=== PATIENT | female | born 1950 | race Caucasian/White ===

== ENCOUNTER 2023-07-12 20:31 | Inpatient (IN) | payer MEDICARE, OTHER ==
[~2023-07-12] VITALS: Ht 162.6 cm; Wt 82.6 kg
[2023-07-12] MEDS ORDERED: IV NS 0.9% 500 ML BAG IV ONE (21:00)
[2023-07-12 21:33] LABS: BASOPHILS % (AUTO) 0.6 % (0.0-2.0); EOSINOPHILS # (AUTO) 0.1 K/uL (0.0-0.7); EOSINOPHILS % (AUTO) 1.4 % (0.0-6.0); HEMATOCRIT 42 % (33-45); HEMOGLOBIN 13.7 g/dL (11.5-14.8); LYMPHOCYTES # (AUTO) 2.3 K/uL (0.8-4.8); LYMPHOCYTES % (AUTO) 27.8 % (20.0-44.0); MEAN CORPUSCULAR HEMOGLOBIN 29 PG (26.0-33.0); MEAN CORPUSCULAR HGB CONC 32 g/dl (31.0-36.0); MEAN CORPUSCULAR VOLUME 89 fL (82-100); MONOCYTES # (AUTO) 0.4 K/uL (0.1-1.30); MONOCYTES % (AUTO) 4.4 % (2.0-12.0); NEUTROPHILS # (AUTO) 5.4 K/uL (1.8-8.9); NEUTROPHILS % (AUTO) 65.8 % (43.0-81.0); PLATELET COUNT (AUTO) 326 K/uL (150-450); RED BLOOD CELL COUNT(AUTO) 4.75 MIL/uL (4.0-5.2); RED CELL DISTRIBUTION WIDTH 14.5 % (11.5-15.0); WHITE BLOOD COUNT (AUTO) 8.2 K/uL (4.3-11.0)
[2023-07-12 21:46] LABS: CALCIUM, SERUM 9.4 mg/dL (8.5-10.1); CREATININE 0.6 mg/dL (0.6-1.3); POTASSIUM 4.2 mmol/L (3.5-5.1)
[2023-07-12 21:52] LABS: ALBUMIN 3.4 g/dL (3.4-5.0); BILIRUBIN,DIRECT 0.1 mg/dL (0.0-0.2); BILIRUBIN,TOTAL 0.4 mg/dL (0.2-1.0); TOTAL PROTEIN, SERUM 7.1 g/dL (6.4-8.2)
[2023-07-12] MEDS ORDERED: MAG HYDROX/AL HYDROX/SIMETH 30 ML UDC PO PRN (22:30)
[2023-07-12] MEDS ORDERED: Z GUARD REMEDY 4 OZ OINT TP PRN (22:30)
[2023-07-12] MEDS ORDERED: IV D5/0.45 NACL 1,000 ML IV PRN (22:30)
[2023-07-12] MEDS ORDERED: ONDANSETRON HCL/PF 4 MG/2 ML VIAL IVP PRN (22:30)
[2023-07-12] MEDS ORDERED: ACETAMINOPHEN 325 MG TABLET PO PRN (22:30)
[2023-07-12] MEDS ORDERED: MAGNESIUM HYDROXIDE 30 ML UDC PO PRN (22:30)
[2023-07-12 23:13] LABS: APPEARANCE,URINE CLEAR (CLEAR); BILIRUBIN,URINE NEGATIVE (NEGATIVE); BLOOD, URINE NEGATIVE Ery/uL (NEGATIVE); COLOR,URINE YELLOW (YELLOW); KETONES,URINE NEGATIVE (NEGATIVE); LEUKOCYTE ESTERASE ,URINE 1+ (NEGATIVE); NITRITE, URINE NEGATIVE (NEGATIVE); PROTEIN,URINE NEGATIVE (NEGATIVE); UGLUCOSE NEGATIVE (NEGATIVE); UROBILINOGEN,URINE 0.2 EU/dL (0.2)
[2023-07-12 23:14] LABS: ADD URINE CULTURE YES; BACTERIA,URINE Rare /HPF (None Seen); RBC,URINE 0-2 /HPF (0-2); SQUAMOUS EPITHELIAL CELL,UR Few /HPF (None Seen)
[2023-07-13] MEDS: ENOXAPARIN SODIUM 40 MG/0.4 ML DISP.SYRIN SQ SCH ×2 (02:28→21:19)
[2023-07-13 06:17] LABS: BASOPHILS % (AUTO) 0.3 % (0.0-2.0); EOSINOPHILS # (AUTO) 0.1 K/uL (0.0-0.7); EOSINOPHILS % (AUTO) 1.6 % (0.0-6.0); HEMATOCRIT 37 % (33-45); HEMOGLOBIN 12.4 g/dL (11.5-14.8); LYMPHOCYTES # (AUTO) 2.3 K/uL (0.8-4.8); LYMPHOCYTES % (AUTO) 31.5 % (20.0-44.0); MEAN CORPUSCULAR HEMOGLOBIN 29 PG (26.0-33.0); MEAN CORPUSCULAR HGB CONC 33 g/dl (31.0-36.0); MEAN CORPUSCULAR VOLUME 88 fL (82-100); MONOCYTES # (AUTO) 0.4 K/uL (0.1-1.30); MONOCYTES % (AUTO) 4.8 % (2.0-12.0); NEUTROPHILS # (AUTO) 4.5 K/uL (1.8-8.9); NEUTROPHILS % (AUTO) 61.8 % (43.0-81.0); PLATELET COUNT (AUTO) 312 K/uL (150-450); RED BLOOD CELL COUNT(AUTO) 4.25 MIL/uL (4.0-5.2); RED CELL DISTRIBUTION WIDTH 14.5 % (11.5-15.0); WHITE BLOOD COUNT (AUTO) 7.4 K/uL (4.3-11.0)
[2023-07-13 06:33] LABS: CALCIUM, SERUM 8.7 mg/dL (8.5-10.1); CARBON DIOXIDE 26 mmol/L (21-32); CHLORIDE 109 mmol/L (98-107); CREATININE 0.5 mg/dL (0.6-1.3); GLUCOSE 129 mg/dL (74-106); MAGNESIUM 1.8 mg/dL (1.8-2.4); PHOSPHORUS 3.3 mg/dL (2.5-4.9); POTASSIUM 3.4 mmol/L (3.5-5.1); SODIUM SERUM 143 mmol/L (136-145); UREA NITROGEN, BLOOD 11 mg/dL (7-18)
[2023-07-13] MEDS: NITROFURANTOIN/MONOHYDRATE MACROCRYSTALS 100 MG CAPSULE PO SCH ×3 (07:30→21:19)
[2023-07-13 08:32] VITALS: BP 145/75; TEMP 97.7; O2SAT 97
[2023-07-13] MEDS ORDERED: ACET-868 PO (08:37)
[2023-07-13] MEDS ORDERED: NA P133E RC (08:37)
[2023-07-13] MEDS ORDERED: OLAN10TA3 PO (08:37)
[2023-07-13] MEDS ORDERED: MAGN400O6 PO (08:37)
[2023-07-13] MEDS ORDERED: INSU100V7 SQ (08:37)
[2023-07-13] MEDS ORDERED: ATOR10TA PO (08:37)
[2023-07-13] MEDS ORDERED: MAG30ORA PO (08:37)
[2023-07-13] MEDS ORDERED: AMLO-213 PO (08:37)
[2023-07-13] MEDS ORDERED: GLIM2TAB31 PO (08:37)
[2023-07-13] MEDS ORDERED: INSU100V3 SQ (08:37)
[2023-07-13] MEDS ORDERED: BISA10SU11 RC (08:37)
[2023-07-13] MEDS ORDERED: DOCU250C14 PO (08:37)
[2023-07-13] MEDS ORDERED: METF-441 PO (08:37)
[2023-07-13] MEDS: PANTOPRAZOLE 40 MG TABLET.DR PO SCH (09:01)
[2023-07-13] MEDS ORDERED: INSULIN REGULAR, HUMAN 100 UNIT/ML 3 ML VIAL SQ PRN (11:00)
[2023-07-13] MEDS ORDERED: *INSULIN REGULAR(HUMULIN R)HUM 100 UNIT/ML VIAL SQ PRN (11:00)
[2023-07-13] MEDS ORDERED: DEXTROSE 50%-WATER 50 ML DISP.SYRIN IV PRN (11:00)
[2023-07-13] MEDS: BLOOD SUGAR DIAGNOSTIC 1 EACH STRIP VI SCH ×3 (12:00→21:19)
[2023-07-13] MEDS ORDERED: POTASSIUM CHLORIDE 20 MEQ TAB.PRT.SR PO ONE (12:00)
[2023-07-13 16:55] VITALS: BP_SYST 160; BP_SYST 163; BP_DIAS 72; BP_DIAS 84; TEMP 98.2; O2SAT 100; O2SAT 96
[2023-07-13 20:27] VITALS: BP 151/50; TEMP 98.6; O2SAT 98
[2023-07-14] MEDS: BLOOD SUGAR DIAGNOSTIC 1 EACH STRIP VI SCH ×4 (07:23→21:22)
[2023-07-14] MEDS: PANTOPRAZOLE 40 MG TABLET.DR PO SCH (07:42)
[2023-07-14 08:00] VITALS: BP 159/63; TEMP 98.2; O2SAT 96
[2023-07-14] MEDS: NITROFURANTOIN/MONOHYDRATE MACROCRYSTALS 100 MG CAPSULE PO SCH ×2 (08:15→21:11)
[2023-07-14 16:00] VITALS: BP 132/60; TEMP 98.1; O2SAT 98
[2023-07-14 20:00] VITALS: BP 15/58; TEMP 98.4; O2SAT 95
[2023-07-14] MEDS: ENOXAPARIN SODIUM 40 MG/0.4 ML DISP.SYRIN SQ SCH (21:21)
[2023-07-15] MEDS: BLOOD SUGAR DIAGNOSTIC 1 EACH STRIP VI SCH ×4 (06:47→21:49)
[2023-07-15 08:00] VITALS: BP 158/71; TEMP 97.3; O2SAT 95
[2023-07-15] MEDS: NITROFURANTOIN/MONOHYDRATE MACROCRYSTALS 100 MG CAPSULE PO SCH ×2 (08:16→20:50)
[2023-07-15] MEDS: PANTOPRAZOLE 40 MG TABLET.DR PO SCH (08:16)
[2023-07-15 16:51] VITALS: BP 163/65; TEMP 97.5; O2SAT 99
[2023-07-15 19:00] VITALS: BP 139/72; TEMP 98.4; O2SAT 96
[2023-07-15] MEDS: ENOXAPARIN SODIUM 40 MG/0.4 ML DISP.SYRIN SQ SCH (21:37)
[2023-07-16] MEDS: BLOOD SUGAR DIAGNOSTIC 1 EACH STRIP VI SCH ×2 (07:30→11:58)
[2023-07-16 08:00] VITALS: BP 163/68; TEMP 97.6; O2SAT 97
[2023-07-16] MEDS: PANTOPRAZOLE 40 MG TABLET.DR PO SCH (08:14)
[2023-07-16] MEDS: NITROFURANTOIN/MONOHYDRATE MACROCRYSTALS 100 MG CAPSULE PO SCH (08:14)
[2023-07-16] MEDS ORDERED: NITR100C15 PO (08:50)
== END 2023-07-16 14:45 | DRG 690 ==
LOC: ER 20:51 → MED 07-13 00:39
PROVIDERS: ATTEND Internal Medicine
DX: N39.0 Urinary tract infection, site not specified (principal); R63.4 Abnormal weight loss; G20 Parkinson's disease; E11.9 Type 2 diabetes mellitus without complications; E78.5 Hyperlipidemia, unspecified; I10 Essential (primary) hypertension; R62.7 Adult failure to thrive; Z68.31 Body mass index [BMI] 31.0-31.9, adult; Z79.84 Long term (current) use of oral hypoglycemic drugs; Z79.4 Long term (current) use of insulin
CPT/HCPCS: 36415; 71045-TC; 80048-TC; 80076-TC; 81001; 83735-TC; 84100-TC; 85025-TC; 87081-TC; 87086-TC; 97116-TC; G0378; J1650; J1815; J3490; J7030

== ENCOUNTER 2023-12-14 12:46 | Inpatient (IN) | payer MEDICARE, OTHER ==
[~2023-12-14] VITALS: Ht 157.5 cm; Wt 80.7 kg
[~2023-12-14 12:46] MED LIST: ACET-868 PO; AMLO-213 PO; ATOR10TA PO; BISA10SU11 RC; DOCU250C14 PO; GLIM2TAB31 PO; INSU100V3 SQ; INSU100V7 SQ; MAG30ORA PO; MAGN400O6 PO; METF-441 PO; NA P133E RC; NITR100C15 PO; OLAN10TA3 PO
[2023-12-14 14:54] LABS: BASOPHILS # (AUTO) 0.1 K/uL (0.0-0.2); BASOPHILS % (AUTO) 1.1 % (0.0-2.0); EOSINOPHILS # (AUTO) 0.2 K/uL (0.0-0.7); EOSINOPHILS % (AUTO) 1.4 % (0.0-6.0); HEMATOCRIT 41 % (33-45); HEMOGLOBIN 13.5 g/dL (11.5-14.8); LYMPHOCYTES % (AUTO) 18.5 % (20.0-44.0); MEAN CORPUSCULAR HEMOGLOBIN 29 PG (26.0-33.0); MEAN CORPUSCULAR HGB CONC 33 g/dl (31.0-36.0); MEAN CORPUSCULAR VOLUME 89 fL (82-100); MONOCYTES # (AUTO) 0.4 K/uL (0.1-1.30); MONOCYTES % (AUTO) 3.5 % (2.0-12.0); NEUTROPHILS # (AUTO) 8.1 K/uL (1.8-8.9); NEUTROPHILS % (AUTO) 75.5 % (43.0-81.0); PLATELET COUNT (AUTO) 491 K/uL (150-450); RED BLOOD CELL COUNT(AUTO) 4.62 MIL/uL (4.0-5.2); RED CELL DISTRIBUTION WIDTH 13.4 % (11.5-15.0); WHITE BLOOD COUNT (AUTO) 10.8 K/uL (4.3-11.0)
[2023-12-14] MEDS ORDERED: DOCU100T2 PO (15:02)
[2023-12-14] MEDS ORDERED: MAG-5 PO (15:02)
[2023-12-14 15:15] LABS: ALANINE AMINOTRANSFERASE 25 U/L (12-78); ALBUMIN 3.1 g/dL (3.4-5.0); ALKALINE PHOSPHATASE 88 U/L (46-116); ASPARTATE AMINOTRANSFERASE 14 U/L (15-37); BILIRUBIN,DIRECT 0.1 mg/dL (0.0-0.2); BILIRUBIN,TOTAL 0.2 mg/dL (0.2-1.0); CALCIUM, SERUM 9.2 mg/dL (8.5-10.1); CARBON DIOXIDE 26 mmol/L (21-32); CREATININE 0.7 mg/dL (0.6-1.3); GLUCOSE 98 mg/dL (74-106); TOTAL PROTEIN, SERUM 7.3 g/dL (6.4-8.2); UREA NITROGEN, BLOOD 25 mg/dL (7-18)
[2023-12-14 15:23] LABS: CHLORIDE 106 mmol/L (98-107); POTASSIUM 3.9 mmol/L (3.5-5.1); SODIUM SERUM 140 mmol/L (136-145)
[2023-12-14] MEDS ORDERED: MAG HYDROX/AL HYDROX/SIMETH 30 ML UDC PO PRN (17:00)
[2023-12-14] MEDS: METFORMIN 850 MG TABLET PO SCH (17:00)
[2023-12-14] MEDS ORDERED: BISACODYL SUPP (10 MG) 10 MG/SUPP.RECT SUPP.RECT RC PRN (17:00)
[2023-12-14] MEDS: GLIMEPIRIDE 1 MG TABLET PO SCH (17:00)
[2023-12-14] MEDS ORDERED: MAGNESIUM HYDROXIDE 30 ML UDC PO PRN (17:00)
[2023-12-14] MEDS ORDERED: ACETAMINOPHEN 325 MG TABLET PO PRN (17:00)
[2023-12-14] MEDS ORDERED: Z GUARD REMEDY 4 OZ OINT TP PRN (17:00)
[2023-12-14] MEDS ORDERED: NA PHOS,M-B/NA PHOS,DI-BA 1 EA ENEMA RC PRN (17:00)
[2023-12-14] MEDS ORDERED: ONDANSETRON HCL/PF 4 MG/2 ML VIAL IVP PRN (17:00)
[2023-12-14 17:17] LABS: EOSINOPHILS % (MANUAL) 3 % (0-4); LYMPHOCYTES % (MANUAL) 17 % (16-48); MONOCYTES % (MANUAL) 3 % (0-11.0); NEUTROPHILS % (MANUAL) 77 (42-76)
[2023-12-14 17:18] LABS: ANISOCYTOSIS 1+; PLATELET ESTIMATE INCRE
[2023-12-14] MEDS: BLOOD SUGAR DIAGNOSTIC 1 EACH STRIP IN SCH (17:30)
[2023-12-14] MEDS ORDERED: DEXTROSE 50%-WATER 50 ML DISP.SYRIN IV PRN (17:30)
[2023-12-14 18:31] LABS: CHOLESTEROL 131 mg/dL (<200); HDL CHOLESTEROL 34 mg/dL (40-60); LDL 74 mg/dL (0-99); THYROID STIMULATING HORMONE 2.551 uIU/mL (0.358-3.74); TRIGLYCERIDES 182 mg/dL (30-150)
[2023-12-14 20:00] VITALS: BP 90/58; TEMP 98.2; O2SAT 98
[2023-12-14] MEDS: IV NS 0.9% 1,000 ML IV PRN (20:32)
[2023-12-14] MEDS: INSULIN GLARGINE, 100 UNIT/ML CARTRIDGE SQ SCH (22:00)
[2023-12-14] MEDS: ATORVASTATIN 10 MG TABLET PO SCH (22:12)
[2023-12-14] MEDS: ACETAMINOPHEN 325 MG TABLET PO PRN (22:13)
[2023-12-14] MEDS: INSULIN REGULAR, HUMAN 100 UNIT/ML 3 ML VIAL SQ PRN (23:15)
[2023-12-15 04:00] VITALS: BP 118/78; TEMP 98.6; O2SAT 99
[2023-12-15 06:59] LABS: BASOPHILS % (AUTO) 0.3 % (0.0-2.0); EOSINOPHILS # (AUTO) 0.2 K/uL (0.0-0.7); EOSINOPHILS % (AUTO) 2.2 % (0.0-6.0); HEMATOCRIT 37 % (33-45); HEMOGLOBIN 12.6 g/dL (11.5-14.8); LYMPHOCYTES # (AUTO) 2.3 K/uL (0.8-4.8); LYMPHOCYTES % (AUTO) 22.9 % (20.0-44.0); MEAN CORPUSCULAR HEMOGLOBIN 30 PG (26.0-33.0); MEAN CORPUSCULAR HGB CONC 34 g/dl (31.0-36.0); MEAN CORPUSCULAR VOLUME 89 fL (82-100); MONOCYTES # (AUTO) 0.5 K/uL (0.1-1.30); MONOCYTES % (AUTO) 5.5 % (2.0-12.0); NEUTROPHILS # (AUTO) 6.9 K/uL (1.8-8.9); NEUTROPHILS % (AUTO) 69.1 % (43.0-81.0); PLATELET COUNT (AUTO) 460 K/uL (150-450); RED CELL DISTRIBUTION WIDTH 13.3 % (11.5-15.0); WHITE BLOOD COUNT (AUTO) 9.9 K/uL (4.3-11.0)
[2023-12-15 08:09] LABS: CALCIUM, SERUM 8.6 mg/dL (8.5-10.1); CREATININE 0.7 mg/dL (0.6-1.3); MAGNESIUM 1.7 mg/dL (1.8-2.4); PHOSPHORUS 3.8 mg/dL (2.5-4.9); POTASSIUM 3.8 mmol/L (3.5-5.1)
[2023-12-15] MEDS: PANTOPRAZOLE 40 MG TABLET.DR PO SCH (08:22)
[2023-12-15] MEDS: AMLODIPINE BESYLATE 10 MG TABLET PO SCH (08:26)
[2023-12-15] MEDS: MAGNESIUM OXIDE 400 MG TABLET PO ONE (10:10)
[2023-12-15 12:00] VITALS: BP 120/50; TEMP 97.6; O2SAT 99
[2023-12-15 20:00] VITALS: BP 129/62; TEMP 98.6
[2023-12-16 04:00] VITALS: BP 127/65; TEMP 98.5; O2SAT 94
[2023-12-16 08:00] VITALS: BP 127/92; TEMP 98.2; O2SAT 93
[2023-12-16] MEDS ORDERED: diphenhydrAMINE HCL 50 MG/ML VIAL IV PRN (09:30)
[2023-12-16] MEDS ORDERED: HALOPERIDOL LACTATE INJ 5 MG/ML VIAL IM PRN (09:30)
[2023-12-16] MEDS: MAGNESIUM OXIDE 400 MG TABLET PO ONE (10:13)
[2023-12-16] MEDS: ENOXAPARIN SODIUM 40 MG/0.4 ML DISP.SYRIN SQ SCH (14:50)
[2023-12-16 16:00] VITALS: BP 132/62; TEMP 98.8; O2SAT 93
[2023-12-17 04:00] VITALS: BP 114/54; TEMP 98.2; O2SAT 95
[2023-12-17 07:13] LABS: BASOPHILS % (AUTO) 0.2 % (0.0-2.0); EOSINOPHILS # (AUTO) 0.2 K/uL (0.0-0.7); EOSINOPHILS % (AUTO) 1.5 % (0.0-6.0); HEMATOCRIT 35 % (33-45); HEMOGLOBIN 11.8 g/dL (11.5-14.8); LYMPHOCYTES # (AUTO) 2.2 K/uL (0.8-4.8); LYMPHOCYTES % (AUTO) 19.9 % (20.0-44.0); MEAN CORPUSCULAR HEMOGLOBIN 30 PG (26.0-33.0); MEAN CORPUSCULAR HGB CONC 33 g/dl (31.0-36.0); MEAN CORPUSCULAR VOLUME 89 fL (82-100); MONOCYTES # (AUTO) 0.5 K/uL (0.1-1.30); MONOCYTES % (AUTO) 4.4 % (2.0-12.0); NEUTROPHILS # (AUTO) 8.3 K/uL (1.8-8.9); PLATELET COUNT (AUTO) 427 K/uL (150-450); RED BLOOD CELL COUNT(AUTO) 3.98 MIL/uL (4.0-5.2); RED CELL DISTRIBUTION WIDTH 13.4 % (11.5-15.0); WHITE BLOOD COUNT (AUTO) 11.2 K/uL (4.3-11.0)
[2023-12-17 07:33] LABS: CARBON DIOXIDE 22 mmol/L (21-32); CHLORIDE 107 mmol/L (98-107); POTASSIUM 3.9 mmol/L (3.5-5.1); SODIUM SERUM 139 mmol/L (136-145)
[2023-12-17 08:00] VITALS: BP 139/59; TEMP 98.3; O2SAT 92
[2023-12-17 08:20] LABS: CALCIUM, SERUM 8.7 mg/dL (8.5-10.1); CREATININE 0.5 mg/dL (0.6-1.3); GLUCOSE 59 mg/dL (74-106); MAGNESIUM 1.6 mg/dL (1.8-2.4); PHOSPHORUS 3.4 mg/dL (2.5-4.9); UREA NITROGEN, BLOOD 30 mg/dL (7-18)
[2023-12-17] MEDS: MAGNESIUM OXIDE 400 MG TABLET PO ONE (09:58)
[2023-12-17] MEDS ORDERED: Magnesium 1GM/D5W 100ML PREMIX 100 ML IV SCH (10:00)
[2023-12-17] MEDS ORDERED: DIPH50CA4 PO (14:32)
[2023-12-17] MEDS ORDERED: HALO5VIA9 IM (14:32)
[2023-12-17 16:00] VITALS: BP 134/58; TEMP 98.4; O2SAT 95
== END 2023-12-17 17:25 | DRG 641 ==
LOC: ER 13:03 → MEDSG1 16:32
PROVIDERS: ADMIT Nurse Practitioner Acute Care; ATTEND Nurse Practitioner Acute Care
DX: E86.0 Dehydration (principal); D68.69 Other thrombophilia; M48.54XA Collapsed vertebra, not elsewhere classified, thoracic region, initial encounter for fracture; R62.7 Adult failure to thrive; M48.07 Spinal stenosis, lumbosacral region; G20.A1 Parkinson's disease without dyskinesia, without mention of fluctuations; I11.0 Hypertensive heart disease with heart failure; I50.9 Heart failure, unspecified; D75.839 Thrombocytosis, unspecified; E78.5 Hyperlipidemia, unspecified; E83.42 Hypomagnesemia; F29 Unspecified psychosis not due to a substance or known physiological condition; F32.A Depression, unspecified; Z79.4 Long term (current) use of insulin; Z79.84 Long term (current) use of oral hypoglycemic drugs; Z20.822 Contact with and (suspected) exposure to COVID-19; R53.1 Weakness; M41.86 Other forms of scoliosis, lumbar region; M85.88 Other specified disorders of bone density and structure, other site; E11.40 Type 2 diabetes mellitus with diabetic neuropathy, unspecified; M51.37 Other intervertebral disc degeneration, lumbosacral region; G89.29 Other chronic pain
CPT/HCPCS: 36415; 71045-TC; 72131-TC; 80048-TC; 80061-TC; 80076-TC; 82533; 82607-TC; 83735-TC; 83921; 84100-TC; 84443-TC; 84484-TC; 85025-TC; 93307-TC; 97110-TC; 97112-TC; 97530-TC; A4223; G0378; J1650; J1815; J7030

== ENCOUNTER 2024-07-11 01:41 | Inpatient (IN) | payer MEDICARE, OTHER ==
[~2024-07-11] VITALS: Ht 162.6 cm; Wt 76.2 kg
[~2024-07-11 01:41] MED LIST changes: +DIPH50CA4 PO; +DOCU100T2 PO; -DOCU250C14 PO; +HALO5VIA9 IM; +MAG-5 PO; -MAG30ORA PO; -NITR100C15 PO; -OLAN10TA3 PO
[2024-07-11 02:21] LABS: BASOPHILS % (AUTO) 0.5 % (0.0-2.0); EOSINOPHILS # (AUTO) 0.2 K/uL (0.0-0.7); EOSINOPHILS % (AUTO) 2.3 % (0.0-6.0); HEMATOCRIT 41 % (33-45); HEMOGLOBIN 13.4 g/dL (11.5-14.8); LYMPHOCYTES # (AUTO) 2.4 K/uL (0.8-4.8); LYMPHOCYTES % (AUTO) 29.3 % (20.0-44.0); MEAN CORPUSCULAR HEMOGLOBIN 29 PG (26.0-33.0); MEAN CORPUSCULAR HGB CONC 33 g/dl (31.0-36.0); MEAN CORPUSCULAR VOLUME 88 fL (82-100); MONOCYTES # (AUTO) 0.5 K/uL (0.1-1.30); MONOCYTES % (AUTO) 5.9 % (2.0-12.0); PLATELET COUNT (AUTO) 393 K/uL (150-450); RED CELL DISTRIBUTION WIDTH 13.3 % (11.5-15.0)
[2024-07-11 02:28] LABS: CALCIUM, SERUM 9.3 mg/dL (8.5-10.1); CARBON DIOXIDE 28 mmol/L (21-32); CHLORIDE 104 mmol/L (98-107); CREATININE 0.6 mg/dL (0.6-1.3); GLUCOSE 187 mg/dL (74-106); POTASSIUM 4.1 mmol/L (3.5-5.1); SODIUM SERUM 138 mmol/L (136-145); UREA NITROGEN, BLOOD 14 mg/dL (7-18)
[2024-07-11 02:44] LABS: ACETAMINOPHEN <10 ug/ml (10-30); ALANINE AMINOTRANSFERASE 20 U/L (12-78); ALBUMIN 2.8 g/dL (3.4-5.0); ALCOHOL, BLOOD < 3 mg/dL (0-10); ALKALINE PHOSPHATASE 92 U/L (46-116); ASPARTATE AMINOTRANSFERASE 7 U/L (15-37); BILIRUBIN,DIRECT 0.1 mg/dL (0.0-0.2); BILIRUBIN,TOTAL 0.4 mg/dL (0.2-1.0); SALICYLATE 1.4 mg/dL (2.8-20.0); TOTAL PROTEIN, SERUM 6.6 g/dL (6.4-8.2)
[2024-07-11 06:51] LABS: APPEARANCE,URINE SLIGHTLY CLOUDY (CLEAR); BILIRUBIN,URINE NEGATIVE (NEGATIVE); BLOOD, URINE NEGATIVE Ery/uL (NEGATIVE); COLOR,URINE YELLOW (YELLOW); KETONES,URINE NEGATIVE (NEGATIVE); LEUKOCYTE ESTERASE ,URINE NEGATIVE (NEGATIVE); NITRITE, URINE NEGATIVE (NEGATIVE); PH,URINE 5.5 (5.0-8.0); PROTEIN,URINE NEGATIVE (NEGATIVE); UGLUCOSE NEGATIVE (NEGATIVE); UROBILINOGEN,URINE 0.2 EU/dL (0.2)
[2024-07-11 07:00] LABS: ADD URINE CULTURE NO; BACTERIA,URINE Rare /HPF (None Seen); RBC,URINE 0-2 /HPF (0-2); SQUAMOUS EPITHELIAL CELL,UR Moderate /HPF (None Seen); WBC,URINE 0-2 /HPF (0-3)
[2024-07-11 07:04] LABS: AMPHETAMINE, URINE NEGATIVE (NEGATIVE); BARBITURATE, URINE NEGATIVE (NEGATIVE); BENZODIAZEPINE, URINE NEGATIVE (NEGATIVE); CANNABINOID, URINE NEGATIVE (NEGATIVE); COCCAINE, URINE NEGATIVE (NEGATIVE); OPIATE, URINE NEGATIVE (NEGATIVE); PHENCYCLIDINE SCREEN,URINE NEGATIVE (NEGATIVE)
[2024-07-11] MEDS ORDERED: MULT-213 PO (11:43)
[2024-07-11] MEDS ORDERED: MIRT-90 PO (11:43)
[2024-07-11] MEDS ORDERED: DIPH50CA4 PO (11:43)
[2024-07-11] MEDS ORDERED: GLUC1KIT SQ (11:43)
[2024-07-11 14:30] VITALS: BP 146/66; TEMP 98; O2SAT 99
[2024-07-11] MEDS ORDERED: MAG HYDROX/AL HYDROX/SIMETH 30 ML UDC PO PRN ×2 (15:00→18:30)
[2024-07-11] MEDS ORDERED: MAGNESIUM HYDROXIDE 30 ML UDC PO PRN ×2 (15:00→18:30)
[2024-07-11] MEDS ORDERED: ACETAMINOPHEN 325 MG TABLET PO PRN ×2 (15:00→18:30)
[2024-07-11] MEDS ORDERED: TEMAZEPAM 7.5 MG CAPSULE PO PRN (15:00)
[2024-07-11] MEDS ORDERED: clonazePAM 0.5 MG TABLET PO PRN (15:00)
[2024-07-11] MEDS: BLOOD SUGAR DIAGNOSTIC 1 EACH STRIP IN ONE (15:37)
[2024-07-11 16:00] VITALS: BP 146/61; TEMP 98; O2SAT 99
[2024-07-11] MEDS ORDERED: BISACODYL SUPP (10 MG) 10 MG/SUPP.RECT SUPP.RECT RC PRN (18:30)
[2024-07-11] MEDS ORDERED: NA PHOS,M-B/NA PHOS,DI-BA 1 EA ENEMA RC PRN (18:30)
[2024-07-11 20:00] VITALS: BP 153/68; TEMP 97.9; O2SAT 96
[2024-07-11 20:23] VITALS: BP 153/68; TEMP 97.9; O2SAT 20
[2024-07-11] MEDS: DOCUSATE SODIUM 100 MG CAPSULE PO SCH (21:53)
[2024-07-11] MEDS: ATORVASTATIN 10 MG TABLET PO SCH (21:54)
[2024-07-12 07:06] LABS: ALANINE AMINOTRANSFERASE 22 U/L (12-78); ALBUMIN 2.9 g/dL (3.4-5.0); ALKALINE PHOSPHATASE 88 U/L (46-116); ASPARTATE AMINOTRANSFERASE 10 U/L (15-37); BILIRUBIN,TOTAL 0.6 mg/dL (0.2-1.0); CALCIUM, SERUM 9.6 mg/dL (8.5-10.1); CARBON DIOXIDE 27 mmol/L (21-32); CHLORIDE 106 mmol/L (98-107); CREATININE 0.6 mg/dL (0.6-1.3); GLUCOSE 145 mg/dL (74-106); POTASSIUM 4.1 mmol/L (3.5-5.1); SODIUM SERUM 139 mmol/L (136-145); TOTAL PROTEIN, SERUM 6.5 g/dL (6.4-8.2); UREA NITROGEN, BLOOD 17 mg/dL (7-18)
[2024-07-12 07:30] LABS: THYROID STIMULATING HORMONE 3.38 uIU/mL (0.358-3.74)
[2024-07-12] MEDS ORDERED: GLUCAGON,HUMAN RECOMBINANT 1 MG/VIAL VIAL SQ PRN (07:30)
[2024-07-12 08:00] VITALS: BP 139/59; TEMP 97.9; O2SAT 96
[2024-07-12] MEDS: AMLODIPINE BESYLATE 10 MG TABLET PO SCH (08:54)
[2024-07-12] MEDS: MULTIVIT W/MINERALS 1 TAB TABLET PO SCH (08:55)
[2024-07-12] MEDS: GLIMEPIRIDE 4 MG TABLET PO SCH (08:55)
[2024-07-12] MEDS: Z GUARD REMEDY 4 OZ OINT TP SCH (09:02)
[2024-07-12] MEDS: METFORMIN 850 MG TABLET PO SCH (09:05)
[2024-07-12 11:31] LABS: CREATININE 0.6 mg/dL (0.6-1.3)
[2024-07-12] MEDS ORDERED: LORAZEPAM 0.5 MG TABLET PO PRN (15:30)
[2024-07-12] MEDS: DIVALPROEX SODIUM 250 MG TABLET.DR PO SCH (17:03)
[2024-07-12] MEDS: OLANZAPINE 2.5 MG TABLET PO SCH (17:03)
[2024-07-12 21:26] VITALS: BP 116/67; TEMP 97.8; O2SAT 95
[2024-07-13 08:00] VITALS: BP 130/70; TEMP 97.6; O2SAT 97
[2024-07-13] MEDS ORDERED: DEXTROSE 50%-WATER 50 ML DISP.SYRIN IV PRN (11:00)
[2024-07-13] MEDS: BLOOD SUGAR DIAGNOSTIC 1 EACH STRIP IN SCH (12:00)
[2024-07-13 16:00] VITALS: BP 116/53; TEMP 98; O2SAT 94
[2024-07-13 20:28] VITALS: BP 118/50; TEMP 98.2; O2SAT 94
[2024-07-14 08:00] VITALS: BP 127/53; TEMP 97.8; O2SAT 97
[2024-07-14 16:00] VITALS: BP 116/59; TEMP 97.9; O2SAT 97
[2024-07-14 20:51] VITALS: BP 101/56; TEMP 98; O2SAT 96
[2024-07-15 08:00] VITALS: BP 133/71; TEMP 97.8; O2SAT 97
[2024-07-15 16:00] VITALS: BP 116/59; TEMP 98; O2SAT 97
[2024-07-15 20:22] VITALS: BP 106/51; TEMP 98.1; O2SAT 94
[2024-07-16 08:00] VITALS: BP 124/42; TEMP 97.6; O2SAT 94
[2024-07-16 16:00] VITALS: BP 136/45; TEMP 98; O2SAT 94
[2024-07-16 20:00] VITALS: BP 118/47; TEMP 97.8; O2SAT 95
[2024-07-17 08:00] VITALS: BP 90/68; TEMP 98; O2SAT 94
[2024-07-17] MEDS: CLOTRIMAZOLE 1% 15 GM TUBE TP SCH (08:37)
[2024-07-17 20:00] VITALS: BP 102/58; TEMP 97.8; O2SAT 95
[2024-07-18 08:00] VITALS: BP 153/73; TEMP 97.5; O2SAT 97
[2024-07-18] MEDS: Z GUARD REMEDY 4 OZ OINT TP SCH (09:22)
[2024-07-18] MEDS: INSULIN REGULAR, HUMAN 100 UNIT/ML 3 ML VIAL SQ PRN (11:57)
[2024-07-18 16:00] VITALS: BP 159/51; TEMP 97.8; O2SAT 95
[2024-07-18 20:00] VITALS: BP 122/52; TEMP 97.9; O2SAT 96
[2024-07-19 08:00] VITALS: BP 122/58; TEMP 97.9; O2SAT 95
[2024-07-19 16:00] VITALS: BP 107/60; TEMP 98.6; O2SAT 99
[2024-07-19 20:22] VITALS: BP 127/58; TEMP 98.6; O2SAT 96
[2024-07-20 08:00] VITALS: BP 97/47; TEMP 97.9; O2SAT 95
[2024-07-20 16:00] VITALS: BP 109/51; TEMP 97.7; O2SAT 95
[2024-07-20 20:55] VITALS: BP 112/50; TEMP 97.7; O2SAT 96
[2024-07-21 08:00] VITALS: BP 144/56; TEMP 98.1; O2SAT 100
[2024-07-21 16:00] VITALS: BP 118/57; TEMP 98; O2SAT 98
[2024-07-21 20:11] VITALS: BP 116/83; TEMP 97.9; O2SAT 95
[2024-07-22 08:00] VITALS: BP 121/64; TEMP 98; O2SAT 97
[2024-07-22 16:18] VITALS: BP 121/44; TEMP 98.1; O2SAT 95
[2024-07-22 20:51] VITALS: BP 119/60; TEMP 97.8; O2SAT 95
[2024-07-23 08:00] VITALS: BP 122/58; TEMP 97.6; O2SAT 97
[2024-07-23 16:00] VITALS: BP 122/62; TEMP 98.6; O2SAT 95
[2024-07-23 20:00] VITALS: BP 116/55; TEMP 98.1; O2SAT 96
[2024-07-24 08:00] VITALS: BP 123/58; TEMP 97.9; O2SAT 96
[2024-07-24 08:49] VITALS: BP 123/68
== END 2024-07-24 13:30 | DRG 885 ==
LOC: ER 01:51 → GPS 13:54
PROVIDERS: ADMIT Psychiatry & Neurology Psychosomatic Medicine; ATTEND Student in an Organized Health Care Education/Training Program
DX: F25.0 Schizoaffective disorder, bipolar type (principal); E44.0 Moderate protein-calorie malnutrition; M48.54XA Collapsed vertebra, not elsewhere classified, thoracic region, initial encounter for fracture; E86.0 Dehydration; E83.42 Hypomagnesemia; D75.839 Thrombocytosis, unspecified; E11.9 Type 2 diabetes mellitus without complications; E78.5 Hyperlipidemia, unspecified; E88.09 Other disorders of plasma-protein metabolism, not elsewhere classified; Z79.4 Long term (current) use of insulin; Z79.84 Long term (current) use of oral hypoglycemic drugs; Z20.822 Contact with and (suspected) exposure to COVID-19; Z73.6 Limitation of activities due to disability; M48.07 Spinal stenosis, lumbosacral region; Z79.899 Other long term (current) drug therapy; I10 Essential (primary) hypertension; G20.A1 Parkinson's disease without dyskinesia, without mention of fluctuations; Z91.199 Patient's noncompliance with other medical treatment and regimen due to unspecified reason; Z68.28 Body mass index [BMI] 28.0-28.9, adult; F41.9 Anxiety disorder, unspecified
CPT/HCPCS: 36415; 80048-TC; 80053-TC; 80061-TC; 80076-TC; 81001; 82565-TC; 84443-TC; 85025-TC; G0480; J1815

== ENCOUNTER 2024-11-03 12:41 | Inpatient (IN) | payer MEDICARE, OTHER ==
[~2024-11-03] VITALS: Ht 165.1 cm; Wt 68.0 kg
[~2024-11-03 12:41] MED LIST changes: +GLUC1KIT SQ; -HALO5VIA9 IM; -INSU100V3 SQ; -INSU100V7 SQ; +MIRT-90 PO; +MULT-213 PO
[2024-11-03] MEDS ORDERED: OLAN2.5T3 PO (13:55)
[2024-11-03] MEDS ORDERED: DIVA-76 PO (13:55)
[2024-11-03] MEDS ORDERED: DOXY100C2 PO (13:55)
[2024-11-03] MEDS: IV NS 0.9% 1,000 ML BAG IV ONE (14:15)
[2024-11-03] MEDS: CEFEPIME 1 GM in IV D5W 50 ML IV ONE (14:15)
[2024-11-03 14:16] LABS: BASOPHILS % (AUTO) 0.3 % (0.0-2.0); EOSINOPHILS # (AUTO) 0.1 K/uL (0.0-0.7); EOSINOPHILS % (AUTO) 0.7 % (0.0-6.0); HEMATOCRIT 44 % (33-45); HEMOGLOBIN 14.4 g/dL (11.5-14.8); LYMPHOCYTES # (AUTO) 2.6 K/uL (0.8-4.8); LYMPHOCYTES % (AUTO) 25.6 % (20.0-44.0); MEAN CORPUSCULAR HEMOGLOBIN 30 PG (26.0-33.0); MEAN CORPUSCULAR HGB CONC 33 g/dl (31.0-36.0); MEAN CORPUSCULAR VOLUME 89 fL (82-100); MONOCYTES # (AUTO) 0.3 K/uL (0.1-1.30); MONOCYTES % (AUTO) 3.3 % (2.0-12.0); NEUTROPHILS # (AUTO) 7.2 K/uL (1.8-8.9); NEUTROPHILS % (AUTO) 70.1 % (43.0-81.0); PLATELET COUNT (AUTO) 356 K/uL (150-450); RED BLOOD CELL COUNT(AUTO) 4.89 MIL/uL (4.0-5.2); WHITE BLOOD COUNT (AUTO) 10.2 K/uL (4.3-11.0)
[2024-11-03 14:31] LABS: ALANINE AMINOTRANSFERASE 18 U/L (12-78); ALBUMIN 3.1 g/dL (3.4-5.0); ALKALINE PHOSPHATASE 76 U/L (46-116); ASPARTATE AMINOTRANSFERASE 16 U/L (15-37); BILIRUBIN,DIRECT 0.1 mg/dL (0.0-0.2); BILIRUBIN,TOTAL 0.2 mg/dL (0.2-1.0); CALCIUM, SERUM 9.5 mg/dL (8.5-10.1); CARBON DIOXIDE 28 mmol/L (21-32); CHLORIDE 106 mmol/L (98-107); CREATININE 0.5 mg/dL (0.6-1.3); POTASSIUM 4.6 mmol/L (3.5-5.1); SODIUM SERUM 143 mmol/L (136-145); TOTAL PROTEIN, SERUM 7.7 g/dL (6.4-8.2); UREA NITROGEN, BLOOD 20 mg/dL (7-18)
[2024-11-03 14:54] LABS: LACTIC ACID 4.7 mmol/L (0.4-2.0)
[2024-11-03 14:55] LABS: GLUCOSE 43 mg/dL (74-106)
[2024-11-03] MEDS: VANCOMYCIN 1 GM in IV D5W 250 ML IV ONE (15:00)
[2024-11-03] MEDS ORDERED: DEXTROSE 50%-WATER 50 ML DISP.SYRIN ONE (15:15)
[2024-11-03] MEDS: DEXTROSE 50%-WATER 50 ML DISP.SYRIN IVP ONE (15:35)
[2024-11-03] MEDS ORDERED: DEXTROSE 50%-WATER 50 ML DISP.SYRIN IV PRN (16:30)
[2024-11-03] MEDS ORDERED: ONDANSETRON HCL/PF 4 MG/2 ML VIAL IVP PRN (16:30)
[2024-11-03] MEDS: OLANZAPINE 2.5 MG TABLET PO SCH (17:27)
[2024-11-03] MEDS: DIVALPROEX SODIUM 250 MG TABLET.DR PO SCH (17:27)
[2024-11-03 17:30] LABS: INR 1.05 (0.91-1.10); PARTIAL THROMBOPLASTIN TIME 30.5 SEC (24.3-34.3); PROTHROMBIN TIME 11.1 SECS (9.2-11.1)
[2024-11-03] MEDS: BLOOD SUGAR DIAGNOSTIC 1 EACH STRIP IN SCH (17:52)
[2024-11-03] MEDS: INSULIN REGULAR, HUMAN 100 UNIT/ML 3 ML VIAL SQ PRN (17:54)
[2024-11-03 18:00] VITALS: BP 117/54; TEMP 97.3; O2SAT 97
[2024-11-03 20:00] VITALS: BP 121/57; TEMP 98.2; O2SAT 95
[2024-11-03] MEDS: HEPARIN SODIUM, PORCINE 5000 UNITS/1 ML VIAL SQ SCH (21:00)
[2024-11-03] MEDS: DOCUSATE SODIUM 100 MG CAPSULE PO SCH (21:00)
[2024-11-03] MEDS: ATORVASTATIN 10 MG TABLET PO SCH (22:00)
[2024-11-04] VITALS: BP 154/70; TEMP 97.7; O2SAT 98
[2024-11-04] MEDS: IV NS 0.9% 1,000 ML IV SCH (00:40)
[2024-11-04 07:07] LABS: BASOPHILS % (AUTO) 0.2 % (0.0-2.0); EOSINOPHILS # (AUTO) 0.2 K/uL (0.0-0.7); EOSINOPHILS % (AUTO) 2.3 % (0.0-6.0); HEMATOCRIT 37 % (33-45); HEMOGLOBIN 12.8 g/dL (11.5-14.8); LYMPHOCYTES # (AUTO) 2.2 K/uL (0.8-4.8); LYMPHOCYTES % (AUTO) 26.5 % (20.0-44.0); MEAN CORPUSCULAR HEMOGLOBIN 31 PG (26.0-33.0); MEAN CORPUSCULAR HGB CONC 35 g/dl (31.0-36.0); MEAN CORPUSCULAR VOLUME 89 fL (82-100); MONOCYTES # (AUTO) 0.5 K/uL (0.1-1.30); NEUTROPHILS # (AUTO) 5.4 K/uL (1.8-8.9); PLATELET COUNT (AUTO) 280 K/uL (150-450); RED BLOOD CELL COUNT(AUTO) 4.18 MIL/uL (4.0-5.2); RED CELL DISTRIBUTION WIDTH 15.8 % (11.5-15.0); WHITE BLOOD COUNT (AUTO) 8.3 K/uL (4.3-11.0)
[2024-11-04 07:30] VITALS: BP 131/57; TEMP 97.7; O2SAT 95
[2024-11-04 07:51] LABS: CALCIUM, SERUM 8.6 mg/dL (8.5-10.1); CREATININE 0.3 mg/dL (0.6-1.3); MAGNESIUM 1.4 mg/dL (1.8-2.4); PHOSPHORUS 3.3 mg/dL (2.5-4.9); POTASSIUM 4.1 mmol/L (3.5-5.1)
[2024-11-04] MEDS: PANTOPRAZOLE 40 MG TABLET.DR PO SCH (07:59)
[2024-11-04] MEDS: AMLODIPINE BESYLATE 10 MG TABLET PO SCH (09:03)
[2024-11-04] MEDS: MULTIVIT W/MINERALS 1 TAB TABLET PO SCH (09:04)
[2024-11-04] MEDS: CLOTRIMAZOLE/BETAMETASONE DIPROPIONATE 15 GM TUBE TP SCH (09:07)
[2024-11-04] MEDS: Z GUARD REMEDY 4 OZ OINT TP PRN (09:07)
[2024-11-04] MEDS: MAGNESIUM OXIDE 400 MG TABLET PO ONE (11:43)
[2024-11-04 16:00] VITALS: BP 115/57; TEMP 98.1; O2SAT 94
[2024-11-04] MEDS: MAGNESIUM HYDROXIDE 30 ML UDC PO PRN (17:46)
[2024-11-04 20:00] VITALS: BP 114/89; O2SAT 95
[2024-11-05 07:00] VITALS: BP 132/57; TEMP 97.9; O2SAT 95
[2024-11-05] MEDS: MUPIROCIN OINT 2% 22 GM TUBE TP SCH (10:03)
[2024-11-05] MEDS ORDERED: IV NS 0.9% 1,000 ML IV PRN (10:06)
[2024-11-05 11:05] LABS: BASOPHILS % (AUTO) 0.2 % (0.0-2.0); EOSINOPHILS % (AUTO) 0.6 % (0.0-6.0); HEMATOCRIT 35 % (33-45); HEMOGLOBIN 11.6 g/dL (11.5-14.8); LYMPHOCYTES # (AUTO) 1.4 K/uL (0.8-4.8); LYMPHOCYTES % (AUTO) 18.7 % (20.0-44.0); MEAN CORPUSCULAR HEMOGLOBIN 29 PG (26.0-33.0); MEAN CORPUSCULAR HGB CONC 33 g/dl (31.0-36.0); MEAN CORPUSCULAR VOLUME 89 fL (82-100); MONOCYTES # (AUTO) 0.4 K/uL (0.1-1.30); NEUTROPHILS # (AUTO) 5.7 K/uL (1.8-8.9); NEUTROPHILS % (AUTO) 75.5 % (43.0-81.0); PLATELET COUNT (AUTO) 290 K/uL (150-450); RED BLOOD CELL COUNT(AUTO) 3.97 MIL/uL (4.0-5.2); WHITE BLOOD COUNT (AUTO) 7.5 K/uL (4.3-11.0)
[2024-11-05 11:23] LABS: CALCIUM, SERUM 8.2 mg/dL (8.5-10.1); CREATININE 0.4 mg/dL (0.6-1.3); MAGNESIUM 1.4 mg/dL (1.8-2.4); PHOSPHORUS 2.6 mg/dL (2.5-4.9); POTASSIUM 3.8 mmol/L (3.5-5.1)
[2024-11-05 11:35] LABS: LACTIC ACID 2.8 mmol/L (0.4-2.0)
[2024-11-05 16:00] VITALS: BP 119/64; TEMP 97.3; O2SAT 96
[2024-11-05 20:00] VITALS: BP 111/59; TEMP 97.9; O2SAT 96
[2024-11-05] MEDS: Magnesium 1GM/D5W 100ML PREMIX 100 ML IV ONE (21:25)
[2024-11-06 08:00] VITALS: BP 146/66; TEMP 97.9; O2SAT 97
[2024-11-06] MEDS: AMOX/CLAVULANATE 875 MG TABLET PO SCH (10:37)
[2024-11-06 10:38] VITALS: BP 146/66
[2024-11-06] MEDS: DOXYCYCLINE HYCLATE (100 MG) 100 MG TABLET PO SCH (10:41)
[2024-11-06] MEDS: ACETAMINOPHEN 325 MG TABLET PO PRN (14:33)
== END 2024-11-06 16:30 | DRG 638 ==
LOC: ER 12:45 → TELE 15:47 → MED 11-04 03:55
PROVIDERS: ADMIT Nurse Practitioner Family; ATTEND Internal Medicine
DX: E11.69 Type 2 diabetes mellitus with other specified complication (principal); E44.1 Mild protein-calorie malnutrition; M86.8X7 Other osteomyelitis, ankle and foot; E87.20 Acidosis, unspecified; L97.528 Non-pressure chronic ulcer of other part of left foot with other specified severity; G20.A1 Parkinson's disease without dyskinesia, without mention of fluctuations; E11.40 Type 2 diabetes mellitus with diabetic neuropathy, unspecified; E11.51 Type 2 diabetes mellitus with diabetic peripheral angiopathy without gangrene; E11.649 Type 2 diabetes mellitus with hypoglycemia without coma; E78.5 Hyperlipidemia, unspecified; E83.42 Hypomagnesemia; E88.09 Other disorders of plasma-protein metabolism, not elsewhere classified; F25.9 Schizoaffective disorder, unspecified; F41.9 Anxiety disorder, unspecified; I10 Essential (primary) hypertension; Z66 Do not resuscitate; Z79.84 Long term (current) use of oral hypoglycemic drugs; Z68.25 Body mass index [BMI] 25.0-25.9, adult; E11.628 Type 2 diabetes mellitus with other skin complications; E11.621 Type 2 diabetes mellitus with foot ulcer
CPT/HCPCS: 36415; 71045-TC; 73630-TC; 73718-TC; 80048-TC; 80061-TC; 80076-TC; 82962-TC; 83605-TC; 83735-TC; 84100-TC; 84484-TC; 85025-TC; 85652-TC; 85730-TC; 86140-TC; 87040-TC; 87081-TC; A4223; A6253; G0378; J0692; J1644; J1815; J3370; J3475; J7030; J7060

== ENCOUNTER 2025-04-28 17:03 | Inpatient (IN) | payer MEDICARE, OTHER ==
[~2025-04-28] VITALS: Ht 165.1 cm; Wt 70.3 kg
[~2025-04-28 17:03] MED LIST changes: -BISA10SU11 RC; -DIPH50CA4 PO; +DIVA-76 PO; +DOXY100C2 PO; -GLUC1KIT SQ; -MAG-5 PO; -MAGN400O6 PO; -MIRT-90 PO; -NA P133E RC; +OLAN2.5T3 PO
[2025-04-28] MEDS ORDERED: KETOROLAC TROMETHAMINE 15 MG/ML VIAL ONE (17:34)
[2025-04-28 17:35] LABS: BASOPHILS # (AUTO) 0.1 K/uL (0.0-0.2); BASOPHILS % (AUTO) 0.7 % (0.0-2.0); EOSINOPHILS # (AUTO) 0.2 K/uL (0.0-0.7); EOSINOPHILS % (AUTO) 2.3 % (0.0-6.0); HEMATOCRIT 44 % (33-45); HEMOGLOBIN 14.5 g/dL (11.5-14.8); LYMPHOCYTES # (AUTO) 3.2 K/uL (0.8-4.8); LYMPHOCYTES % (AUTO) 40.6 % (20.0-44.0); MEAN CORPUSCULAR HEMOGLOBIN 30 PG (26.0-33.0); MEAN CORPUSCULAR HGB CONC 33 g/dl (31.0-36.0); MEAN CORPUSCULAR VOLUME 92 fL (82-100); MONOCYTES # (AUTO) 0.4 K/uL (0.1-1.30); MONOCYTES % (AUTO) 4.9 % (2.0-12.0); NEUTROPHILS # (AUTO) 4.1 K/uL (1.8-8.9); NEUTROPHILS % (AUTO) 51.5 % (43.0-81.0); PLATELET COUNT (AUTO) 368 K/uL (150-450); RED BLOOD CELL COUNT(AUTO) 4.79 MIL/uL (4.0-5.2); RED CELL DISTRIBUTION WIDTH 13.7 % (11.5-15.0)
[2025-04-28] MEDS: KETOROLAC TROMETHAMINE 15 MG/ML VIAL IV ONE (17:40)
[2025-04-28 17:49] LABS: INR 0.95 (0.91-1.10); PARTIAL THROMBOPLASTIN TIME 26.7 SEC (24.3-34.3); PROTHROMBIN TIME 9.8 SECS (9.2-11.1)
[2025-04-28] MEDS ORDERED: IBUP-1955 PO (17:51)
[2025-04-28 17:55] LABS: CALCIUM, SERUM 9.6 mg/dL (8.5-10.1); CARBON DIOXIDE 27 mmol/L (21-32); CHLORIDE 105 mmol/L (98-107); CREATININE 0.7 mg/dL (0.6-1.3); GLUCOSE 58 mg/dL (74-106); POTASSIUM 4.2 mmol/L (3.5-5.1); SODIUM SERUM 142 mmol/L (136-145); UREA NITROGEN, BLOOD 17 mg/dL (7-18)
[2025-04-28 17:57] LABS: ALANINE AMINOTRANSFERASE 14 U/L (12-78); ALBUMIN 3.2 g/dL (3.4-5.0); ALKALINE PHOSPHATASE 71 U/L (46-116); ASPARTATE AMINOTRANSFERASE 8 U/L (15-37); BILIRUBIN,TOTAL 0.1 mg/dL (0.2-1.0); LIPASE 32 U/L (16-77); TOTAL PROTEIN, SERUM 7.3 g/dL (6.4-8.2)
[2025-04-28 17:58] LABS: ACETAMINOPHEN <10 ug/ml (10-30); ALCOHOL, BLOOD < 3 mg/dL (0-10); SALICYLATE 1.4 mg/dL (2.8-20.0)
[2025-04-28 18:06] LABS: APPEARANCE,URINE CLEAR (CLEAR); BILIRUBIN,URINE Negative (NEGATIVE); BLOOD, URINE Trace-intact Ery/uL (NEGATIVE); COLOR,URINE YELLOW (YELLOW); KETONES,URINE 15 mg/dL (NEGATIVE); LEUKOCYTE ESTERASE ,URINE Negative (NEGATIVE); PH,URINE 5.5 (5.0-8.0); PROTEIN,URINE Negative (NEGATIVE); UGLUCOSE Negative (NEGATIVE); UROBILINOGEN,URINE 0.2 EU/dL (0.2)
[2025-04-28 18:07] LABS: NITRITE, URINE NEGATIVE (NEGATIVE)
[2025-04-28 18:08] LABS: ADD URINE CULTURE NO; BACTERIA,URINE Few /HPF (None Seen); SQUAMOUS EPITHELIAL CELL,UR Few /HPF (None Seen)
[2025-04-28 18:14] LABS: AMPHETAMINE, URINE NEGATIVE (NEGATIVE); BARBITURATE, URINE NEGATIVE (NEGATIVE); BENZODIAZEPINE, URINE NEGATIVE (NEGATIVE); CANNABINOID, URINE NEGATIVE (NEGATIVE); COCCAINE, URINE NEGATIVE (NEGATIVE); PHENCYCLIDINE SCREEN,URINE NEGATIVE (NEGATIVE)
[2025-04-28 18:16] LABS: OPIATE, URINE POSITIVE (NEGATIVE)
[2025-04-28 19:59] VITALS: BP 124/55; TEMP 97.3; O2SAT 97
[2025-04-28] MEDS ORDERED: Z GUARD REMEDY 4 OZ OINT TP PRN (20:00)
[2025-04-28] MEDS ORDERED: MAG HYDROX/AL HYDROX/SIMETH 30 ML UDC PO PRN (20:00)
[2025-04-28] MEDS ORDERED: DEXTROSE 50%-WATER 50 ML DISP.SYRIN IV PRN (20:00)
[2025-04-28] MEDS ORDERED: ONDANSETRON HCL/PF 4 MG/2 ML VIAL IVP PRN (20:00)
[2025-04-28] MEDS ORDERED: MAGNESIUM HYDROXIDE 30 ML UDC PO PRN (20:00)
[2025-04-28] MEDS ORDERED: BISACODYL SUPP (10 MG) 10 MG/SUPP.RECT SUPP.RECT RC PRN (20:00)
[2025-04-28] MEDS: IV NS 0.9% 1,000 ML IV SCH (20:42)
[2025-04-28] MEDS: ATORVASTATIN 10 MG TABLET PO SCH (21:13)
[2025-04-28] MEDS: DOCUSATE SODIUM 100 MG CAPSULE PO SCH (21:13)
[2025-04-28] MEDS: ENOXAPARIN SODIUM 40 MG/0.4 ML DISP.SYRIN SQ SCH (21:14)
[2025-04-28] MEDS: BLOOD SUGAR DIAGNOSTIC 1 EACH STRIP IN SCH (21:44)
[2025-04-28] MEDS: INSULIN REGULAR, HUMAN 100 UNIT/ML 3 ML VIAL SQ PRN (21:45)
[2025-04-28 22:30] VITALS: BP 124/55; TEMP 97.3; O2SAT 97
[2025-04-29 06:48] LABS: BASOPHILS % (AUTO) 0.5 % (0.0-2.0); EOSINOPHILS # (AUTO) 0.1 K/uL (0.0-0.7); HEMATOCRIT 40 % (33-45); HEMOGLOBIN 13.1 g/dL (11.5-14.8); LYMPHOCYTES # (AUTO) 2.4 K/uL (0.8-4.8); LYMPHOCYTES % (AUTO) 31.8 % (20.0-44.0); MEAN CORPUSCULAR HEMOGLOBIN 31 PG (26.0-33.0); MEAN CORPUSCULAR HGB CONC 33 g/dl (31.0-36.0); MEAN CORPUSCULAR VOLUME 93 fL (82-100); MONOCYTES # (AUTO) 0.5 K/uL (0.1-1.30); MONOCYTES % (AUTO) 6.3 % (2.0-12.0); NEUTROPHILS # (AUTO) 4.5 K/uL (1.8-8.9); NEUTROPHILS % (AUTO) 59.4 % (43.0-81.0); PLATELET COUNT (AUTO) 292 K/uL (150-450); RED BLOOD CELL COUNT(AUTO) 4.28 MIL/uL (4.0-5.2); RED CELL DISTRIBUTION WIDTH 13.7 % (11.5-15.0); WHITE BLOOD COUNT (AUTO) 7.6 K/uL (4.3-11.0)
[2025-04-29 06:57] LABS: CALCIUM, SERUM 7.9 mg/dL (8.5-10.1); CREATININE 0.4 mg/dL (0.6-1.3); MAGNESIUM 1.9 mg/dL (1.8-2.4); PHOSPHORUS 4.3 mg/dL (2.5-4.9); POTASSIUM 4.6 mmol/L (3.5-5.1)
[2025-04-29 07:00] VITALS: BP 125/54; TEMP 97.5; O2SAT 99
[2025-04-29] MEDS: PANTOPRAZOLE 40 MG TABLET.DR PO SCH (07:52)
[2025-04-29] MEDS: OLANZAPINE 2.5 MG TABLET PO SCH (08:18)
[2025-04-29] MEDS: AMLODIPINE BESYLATE 10 MG TABLET PO SCH (08:19)
[2025-04-29] MEDS: DIVALPROEX SODIUM 250 MG TABLET.DR PO SCH (08:19)
[2025-04-29] MEDS: CLOTRIMAZOLE 1% 15 GM TUBE TP SCH (08:50)
[2025-04-29] MEDS: ACETAMINOPHEN 325 MG TABLET PO PRN (13:53)
[2025-04-29 16:00] VITALS: BP 101/48; TEMP 97.7; O2SAT 97
[2025-04-29 20:00] VITALS: BP 126/88; TEMP 98.1; O2SAT 98
[2025-04-29] MEDS: TAMSULOSIN 0.4 MG CAP.SR.24H PO SCH (21:40)
[2025-04-29] MEDS: POLYETHYLENE GLYCOL 3350 17 GM POWD.PACK PO SCH (21:40)
[2025-04-30 06:37] LABS: BASOPHILS % (AUTO) 0.5 % (0.0-2.0); EOSINOPHILS # (AUTO) 0.1 K/uL (0.0-0.7); EOSINOPHILS % (AUTO) 1.6 % (0.0-6.0); HEMATOCRIT 39 % (33-45); HEMOGLOBIN 12.4 g/dL (11.5-14.8); LYMPHOCYTES # (AUTO) 2.3 K/uL (0.8-4.8); LYMPHOCYTES % (AUTO) 32.5 % (20.0-44.0); MEAN CORPUSCULAR HEMOGLOBIN 30 PG (26.0-33.0); MEAN CORPUSCULAR HGB CONC 32 g/dl (31.0-36.0); MEAN CORPUSCULAR VOLUME 95 fL (82-100); MONOCYTES # (AUTO) 0.3 K/uL (0.1-1.30); MONOCYTES % (AUTO) 4.4 % (2.0-12.0); NEUTROPHILS # (AUTO) 4.4 K/uL (1.8-8.9); PLATELET COUNT (AUTO) 285 K/uL (150-450); RED BLOOD CELL COUNT(AUTO) 4.16 MIL/uL (4.0-5.2); WHITE BLOOD COUNT (AUTO) 7.2 K/uL (4.3-11.0)
[2025-04-30 06:56] LABS: CARBON DIOXIDE 28 mmol/L (21-32); CHLORIDE 109 mmol/L (98-107); CREATININE 0.4 mg/dL (0.6-1.3); GLUCOSE 78 mg/dL (74-106); POTASSIUM 4.1 mmol/L (3.5-5.1); SODIUM SERUM 143 mmol/L (136-145); UREA NITROGEN, BLOOD 15 mg/dL (7-18)
[2025-04-30 07:13] LABS: CALCIUM, SERUM 8.9 mg/dL (8.5-10.1)
[2025-04-30 07:30] VITALS: BP 119/70; TEMP 98.2; O2SAT 96
[2025-04-30 16:00] VITALS: BP 125/48; TEMP 98.4; O2SAT 96
[2025-04-30] MEDS: IV NS 0.9% 1,000 ML IV PRN (17:50)
[2025-04-30 20:00] VITALS: BP 140/57; TEMP 98.2; O2SAT 99
[2025-05-01 07:00] VITALS: BP 118/62; TEMP 97.9; O2SAT 97
[2025-05-01 08:10] VITALS: BP 118/62
[2025-05-01] MEDS ORDERED: CLOT15CR35 TP (10:02)
[2025-05-01] MEDS ORDERED: POLY17PO29 PO (10:02)
== END 2025-05-01 15:30 | DRG 391 ==
LOC: ER 17:08 → MED 19:48
DX: K52.89 Other specified noninfective gastroenteritis and colitis (principal); G93.41 Metabolic encephalopathy; D68.59 Other primary thrombophilia; N20.0 Calculus of kidney; K56.41 Fecal impaction; Z74.01 Bed confinement status; E78.5 Hyperlipidemia, unspecified; F41.9 Anxiety disorder, unspecified; F25.9 Schizoaffective disorder, unspecified; R79.89 Other specified abnormal findings of blood chemistry; I10 Essential (primary) hypertension; R53.1 Weakness; Z79.84 Long term (current) use of oral hypoglycemic drugs; Z79.899 Other long term (current) drug therapy; G20.A1 Parkinson's disease without dyskinesia, without mention of fluctuations; E11.649 Type 2 diabetes mellitus with hypoglycemia without coma
CPT/HCPCS: 36415; 70450-TC; 71045-TC; 80048-TC; 80076-TC; 81001; 82962-TC; 83690-TC; 83735-TC; 84100-TC; 85025-TC; 85730-TC; 87081-TC; A4223; G0378; G0480; J1650; J1815; J1885; J7030

== ENCOUNTER 2025-06-01 17:40 | Inpatient (IN) | payer MEDICARE, OTHER ==
[~2025-06-01] VITALS: Ht 160 cm; Wt 79.9 kg
[~2025-06-01 17:40] MED LIST changes: +CLOT15CR35 TP; -DOXY100C2 PO; +IBUP-1955 PO; -MULT-213 PO; +POLY17PO29 PO
[2025-06-01 19:16] LABS: PLATELET COUNT (AUTO) 412 K/uL (150-450); RED BLOOD CELL COUNT(AUTO) 4.29 MIL/uL (4.0-5.2); RED CELL DISTRIBUTION WIDTH 13.6 % (11.5-15.0); WHITE BLOOD COUNT (AUTO) 25.8 K/uL (4.3-11.0)
[2025-06-01] MEDS ORDERED: ONDANSETRON HCL/PF 4 MG/2 ML VIAL ONE (19:22)
[2025-06-01 19:26] LABS: CALCIUM, SERUM 9.4 mg/dL (8.5-10.1); CREATININE 2.2 mg/dL (0.6-1.3); SODIUM SERUM 137 mmol/L (136-145)
[2025-06-01 19:31] LABS: UREA NITROGEN, BLOOD 93 mg/dL (7-18)
[2025-06-01 19:38] LABS: ASPARTATE AMINOTRANSFERASE 13 U/L (15-37); TOTAL PROTEIN, SERUM 7.5 g/dL (6.4-8.2)
[2025-06-01] MEDS: IV NS 0.9% 500 ML BAG IV ONE (19:39)
[2025-06-01] MEDS: ONDANSETRON HCL/PF 4 MG/2 ML VIAL IVP ONE (19:39)
[2025-06-01 20:40] LABS: APPEARANCE,URINE CLOUDY (CLEAR); BLOOD, URINE 2+ Ery/uL (NEGATIVE); LEUKOCYTE ESTERASE ,URINE 3+ (NEGATIVE); NITRITE, URINE NEGATIVE (NEGATIVE); UGLUCOSE NEGATIVE (NEGATIVE)
[2025-06-01] MEDS: IV NS 0.9% 1,000 ML BAG IV ONE ×3 (20:41→23:20)
[2025-06-01] MEDS ORDERED: PIPERACI/TAZO 3.375GM/D5W 50ML PB IV ONE (20:42)
[2025-06-01] MEDS: PIPERACILLIN /TAZOBACTAM 3.375 G in IV D5W 50 ML IV ONE (20:50)
[2025-06-01] MEDS ORDERED: MAG HYDROX/AL HYDROX/SIMETH 30 ML UDC PO PRN (21:00)
[2025-06-01] MEDS ORDERED: ONDANSETRON HCL/PF 4 MG/2 ML VIAL IVP PRN (21:00)
[2025-06-01] MEDS ORDERED: DOSING PER PHARMACY-ZOSYN IV 1 EA EA XX PRN (21:00)
[2025-06-01] MEDS: NA PHOS,M-B/NA PHOS,DI-BA 1 EA ENEMA RC ONE (21:00)
[2025-06-01] MEDS ORDERED: MAGNESIUM HYDROXIDE 30 ML UDC PO PRN (21:00)
[2025-06-01 21:28] LABS: ADD URINE CULTURE YES
[2025-06-01 21:29] LABS: SQUAMOUS EPITHELIAL CELL,UR 0-2 /HPF (None Seen)
[2025-06-01] MEDS: HEPARIN SODIUM, PORCINE 5000 UNITS/1 ML VIAL SQ SCH (21:30)
[2025-06-01 21:33] LABS: LACTIC ACID 2.5 mmol/L (0.4-2.0)
[2025-06-01 21:35] VITALS: BP 80/58; TEMP 98.4; O2SAT 98
[2025-06-02] VITALS (9 sets, daily range): BP systolic 86–135; BP diastolic 46–65; TEMP 97.9–99.5; O2SAT 97–98
[2025-06-02] MEDS: IV NS 0.9% 1,000 ML IV PRN (00:24)
[2025-06-02] MEDS ORDERED: DOSING PER PHARMACY-VANCOMYCIN IV XX PRN ×2 (01:00)
[2025-06-02] MEDS: VANCOMYCIN 1 GM in IV D5W 250ml IV ONE (01:19)
[2025-06-02] MEDS: ZOSYN IVPB 2.25 G in IV D5W 50ml IV ONE (03:36)
[2025-06-02] MEDS ORDERED: DILTIAZEM HCL 50 MG IV IV ONE (05:30)
[2025-06-02] MEDS ORDERED: DILTIAZEM HCL 25 MG IV ONE (05:34)
[2025-06-02 06:37] LABS: PLATELET COUNT (AUTO) 333 K/uL (150-450); RED BLOOD CELL COUNT(AUTO) 3.77 MIL/uL (4.0-5.2); RED CELL DISTRIBUTION WIDTH 14.3 % (11.5-15.0); WHITE BLOOD COUNT (AUTO) 22.0 K/uL (4.3-11.0)
[2025-06-02 07:05] LABS: CALCIUM, SERUM 8.1 mg/dL (8.5-10.1); CREATININE 1.6 mg/dL (0.6-1.3); PHOSPHORUS 3.4 mg/dL (2.5-4.9); SODIUM SERUM 139.0 mmol/L (136-145)
[2025-06-02] MEDS: BLOOD SUGAR DIAGNOSTIC 1 EACH STRIP IN SCH (07:27)
[2025-06-02] MEDS: DILTIAZEM HCL 50 MG IV IV ONE (07:30)
[2025-06-02] MEDS ORDERED: DEXTROSE 50%-WATER 50 ML DISP.SYRIN IV PRN (07:30)
[2025-06-02 07:38] LABS: UREA NITROGEN, BLOOD 84.0 mg/dL (7-18)
[2025-06-02] MEDS ORDERED: TRAM50TA2 PO (09:18)
[2025-06-02] MEDS: PANTOPRAZOLE 40 MG TABLET.DR PO SCH (09:40)
[2025-06-02] MEDS: PIPERACILLIN /TAZOBACTAM 3.375 G in IV D5W 100 ML IV SCH (09:41)
[2025-06-02] MEDS: MAGNESIUM OXIDE 400 MG TABLET PO ONE (12:05)
[2025-06-02] MEDS: DIVALPROEX SODIUM 250 MG TABLET.DR PO SCH (12:05)
[2025-06-02] MEDS: Z GUARD REMEDY 4 OZ OINT TP PRN (12:06)
[2025-06-02] MEDS: Z GUARD REMEDY 4 OZ OINT TP SCH (12:06)
[2025-06-02] MEDS: INSULIN REGULAR, HUMAN 100 UNIT/ML 3 ML VIAL SQ PRN (12:45)
[2025-06-02] MEDS: OLANZAPINE 2.5 MG TABLET PO SCH (16:59)
[2025-06-02] MEDS: IV D5/0.45 NACL 1,000 ML IV PRN (17:20)
[2025-06-02] MEDS: ACETAMINOPHEN 325 MG TABLET PO PRN (21:47)
[2025-06-02] MEDS: IV LR 500 ML IV ONE (21:57)
[2025-06-02] MEDS: ATORVASTATIN 10 MG TABLET PO SCH (22:03)
[2025-06-02] MEDS: POLYETHYLENE GLYCOL 3350 17 GM POWD.PACK PO SCH (22:03)
[2025-06-03] VITALS: BP 108/50; TEMP 99; O2SAT 97
[2025-06-03] MEDS: VANCOMYCIN 750 MG in IV D5W 250 ML IV SCH (00:01)
[2025-06-03 04:00] VITALS: BP_SYST 117; BP_SYST 121; BP_DIAS 45; BP_DIAS 48; TEMP 97.9; O2SAT 98
[2025-06-03 07:10] LABS: PLATELET COUNT (AUTO) 256 K/uL (150-450); RED BLOOD CELL COUNT(AUTO) 3.77 MIL/uL (4.0-5.2); RED CELL DISTRIBUTION WIDTH 14.3 % (11.5-15.0); WHITE BLOOD COUNT (AUTO) 17.6 K/uL (4.3-11.0)
[2025-06-03 07:30] VITALS: BP 130/62; TEMP 97.9; O2SAT 100
[2025-06-03 11:37] LABS: ASPARTATE AMINOTRANSFERASE 11.0 U/L (15-37); CALCIUM, SERUM 7.6 mg/dL (8.5-10.1); CREATININE 1.4 mg/dL (0.6-1.3); PHOSPHORUS 2.9 mg/dL (2.5-4.9); SODIUM SERUM 141.0 mmol/L (136-145); TOTAL PROTEIN, SERUM 5.5 g/dL (6.4-8.2)
[2025-06-03 11:45] LABS: UREA NITROGEN, BLOOD 79.0 mg/dL (7-18)
[2025-06-03 20:00] VITALS: BP 130/58; TEMP 100; TEMP 100.2; O2SAT 98
[2025-06-03 21:10] VITALS: BP 130/58; TEMP 98.4; O2SAT 98
[2025-06-04] VITALS: BP 113/53; TEMP 98.1; O2SAT 97
[2025-06-04] MEDS: VANCOMYCIN 1 GM in IV D5W 250ml IV SCH (00:51)
[2025-06-04 04:00] VITALS: BP 113/53; TEMP 98.1; O2SAT 97
[2025-06-04 04:54] VITALS: BP 139/63; TEMP 97.3; O2SAT 100
[2025-06-04 07:15] LABS: PLATELET COUNT (AUTO) 206 K/uL (150-450); RED BLOOD CELL COUNT(AUTO) 3.41 MIL/uL (4.0-5.2); RED CELL DISTRIBUTION WIDTH 14.6 % (11.5-15.0); WHITE BLOOD COUNT (AUTO) 14.4 K/uL (4.3-11.0)
[2025-06-04 07:30] VITALS: BP 136/53; TEMP 97.9; O2SAT 100
[2025-06-04 08:02] LABS: ASPARTATE AMINOTRANSFERASE 16.0 U/L (15-37); CALCIUM, SERUM 7.8 mg/dL (8.5-10.1); CREATININE 1.2 mg/dL (0.6-1.3); PHOSPHORUS 2.7 mg/dL (2.5-4.9); SODIUM SERUM 142.0 mmol/L (136-145); TOTAL PROTEIN, SERUM 5.5 g/dL (6.4-8.2); UREA NITROGEN, BLOOD 70.0 mg/dL (7-18)
[2025-06-04] MEDS: POTASSIUM CHLORIDE 20 MEQ TAB.PRT.SR PO ONE (09:13)
[2025-06-04] MEDS: Magnesium 1GM/D5W 100ML PREMIX 100 ML IV SCH (09:13)
[2025-06-04 15:57] VITALS: BP 122/55; TEMP 98.8; O2SAT 99
[2025-06-04] MEDS: CEFTRIAXONE 1 G in IV D5W 50 ML IV SCH (21:07)
[2025-06-05] VITALS: BP_SYST 132; BP_DIAS 72; BP_DIAS 73; TEMP 97.9; O2SAT 99
[2025-06-05 04:00] VITALS: BP 141/84; TEMP 98.1; O2SAT 98
[2025-06-05 06:46] LABS: PLATELET COUNT (AUTO) 184 K/uL (150-450); RED BLOOD CELL COUNT(AUTO) 3.35 MIL/uL (4.0-5.2); RED CELL DISTRIBUTION WIDTH 14.2 % (11.5-15.0); WHITE BLOOD COUNT (AUTO) 12.9 K/uL (4.3-11.0)
[2025-06-05 06:53] LABS: ASPARTATE AMINOTRANSFERASE 12.0 U/L (15-37); CALCIUM, SERUM 7.9 mg/dL (8.5-10.1); CREATININE 1.0 mg/dL (0.6-1.3); PHOSPHORUS 2.4 mg/dL (2.5-4.9); SODIUM SERUM 143.0 mmol/L (136-145); TOTAL PROTEIN, SERUM 5.4 g/dL (6.4-8.2); UREA NITROGEN, BLOOD 53.0 mg/dL (7-18)
[2025-06-05 07:19] LABS: LACTIC ACID 1.3 mmol/L (0.4-2.0)
[2025-06-05 08:00] VITALS: BP 114/61; TEMP 98; O2SAT 100
[2025-06-05] MEDS: K PHOS NEUTRAL 250 MG TABLET PO ONE (09:42)
[2025-06-05] MEDS: POTASSIUM CL. PREMIX PERIPHER. 50 ML IV SCH (09:43)
[2025-06-05 09:51] LABS: LYMPHOCYTES % (MANUAL) 5 % (16-48); MONOCYTES % (MANUAL) 11 % (0-11.0); NEUTROPHILS % (MANUAL) 84 (42-76)
[2025-06-05 09:52] LABS: PLATELET ESTIMATE ADEQUATE
[2025-06-05] MEDS: MEGESTROL ACETATE 40 MG TABLET PO SCH (10:32)
[2025-06-05 12:00] VITALS: BP 125/72; TEMP 98.1; O2SAT 100
[2025-06-05 16:00] VITALS: BP 143/65; TEMP 98; O2SAT 99
[2025-06-05 16:47] LABS: CALCIUM, SERUM 8.0 mg/dL (8.5-10.1); CREATININE 0.9 mg/dL (0.6-1.3); SODIUM SERUM 145.0 mmol/L (136-145); UREA NITROGEN, BLOOD 51.0 mg/dL (7-18)
[2025-06-05 20:00] VITALS: BP_SYST 146; BP_DIAS 64; BP_DIAS 84; TEMP 98.5; O2SAT 95
[2025-06-06 07:19] LABS: PLATELET COUNT (AUTO) 178 K/uL (150-450); RED BLOOD CELL COUNT(AUTO) 3.40 MIL/uL (4.0-5.2); RED CELL DISTRIBUTION WIDTH 14.1 % (11.5-15.0); WHITE BLOOD COUNT (AUTO) 16.0 K/uL (4.3-11.0)
[2025-06-06 07:41] LABS: ASPARTATE AMINOTRANSFERASE 12.0 U/L (15-37); CALCIUM, SERUM 8.1 mg/dL (8.5-10.1); CREATININE 0.9 mg/dL (0.6-1.3); PHOSPHORUS 2.6 mg/dL (2.5-4.9); SODIUM SERUM 144.0 mmol/L (136-145); TOTAL PROTEIN, SERUM 5.2 g/dL (6.4-8.2); UREA NITROGEN, BLOOD 48.0 mg/dL (7-18)
[2025-06-06 08:00] VITALS: BP 130/57; TEMP 98.4; O2SAT 98
[2025-06-06 10:14] LABS: BAND % (MANUAL) 1 % (0.0-5.0); EOSINOPHILS % (MANUAL) 1 % (0-4); LYMPHOCYTES % (MANUAL) 12 % (16-48); MONOCYTES % (MANUAL) 3 % (0-11.0); MYELOCYTES % 3 % (0-0); NEUTROPHILS % (MANUAL) 80 (42-76); PLATELET ESTIMATE ADEQUATE
[2025-06-06] MEDS: POTASSIUM CHLORIDE 20 MEQ TAB.PRT.SR PO SCH (10:49)
[2025-06-06 16:00] VITALS: BP 137/54; TEMP 98.6; O2SAT 96
[2025-06-06 20:00] VITALS: BP 130/58; TEMP 99; TEMP 99.7; O2SAT 95
[2025-06-07 06:54] LABS: PLATELET COUNT (AUTO) 171 K/uL (150-450); RED BLOOD CELL COUNT(AUTO) 3.09 MIL/uL (4.0-5.2); RED CELL DISTRIBUTION WIDTH 14.0 % (11.5-15.0); WHITE BLOOD COUNT (AUTO) 20.5 K/uL (4.3-11.0)
[2025-06-07 07:21] LABS: CALCIUM, SERUM 8.5 mg/dL (8.5-10.1); CREATININE 0.9 mg/dL (0.6-1.3); PHOSPHORUS 2.9 mg/dL (2.5-4.9); UREA NITROGEN, BLOOD 37.0 mg/dL (7-18)
[2025-06-07 07:30] VITALS: BP 137/65; TEMP 98.8; O2SAT 98
[2025-06-07 07:56] LABS: SODIUM SERUM 149.0 mmol/L (136-145)
[2025-06-07] MEDS: POTASSIUM CL. PREMIX PERIPHER. 50 ML IV SCH (08:41)
[2025-06-07] MEDS: Magnesium 1GM/D5W 100ML PREMIX 100 ML IV SCH (08:41)
[2025-06-07] MEDS: IV D5W 1,000 ML IV SCH (08:41)
[2025-06-07 09:08] LABS: LYMPHOCYTES % (MANUAL) 6 % (16-48); MONOCYTES % (MANUAL) 7 % (0-11.0); NEUTROPHILS % (MANUAL) 87 (42-76); PLATELET ESTIMATE ADEQUATE
[2025-06-07 16:00] VITALS: BP 129/60; TEMP 98.4; O2SAT 96
[2025-06-07 19:21] LABS: APPEARANCE,URINE CLOUDY (CLEAR); BLOOD, URINE 3+ Ery/uL (NEGATIVE); LEUKOCYTE ESTERASE ,URINE 3+ (NEGATIVE); NITRITE, URINE NEGATIVE (NEGATIVE); UGLUCOSE NEGATIVE (NEGATIVE)
[2025-06-07 19:58] VITALS: BP 135/51; TEMP 98.2; O2SAT 99
[2025-06-07 20:11] LABS: ADD URINE CULTURE YES; SQUAMOUS EPITHELIAL CELL,UR 0-2 /HPF (None Seen)
[2025-06-08 07:30] VITALS: BP 140/59; TEMP 98.6; O2SAT 100
[2025-06-08 07:47] LABS: PLATELET COUNT (AUTO) 202 K/uL (150-450); RED BLOOD CELL COUNT(AUTO) 3.10 MIL/uL (4.0-5.2); RED CELL DISTRIBUTION WIDTH 14.4 % (11.5-15.0); WHITE BLOOD COUNT (AUTO) 23.7 K/uL (4.3-11.0)
[2025-06-08 07:58] VITALS: BP 126/57; TEMP 97.9; O2SAT 97
[2025-06-08 09:41] LABS: ASPARTATE AMINOTRANSFERASE 11.0 U/L (15-37); CALCIUM, SERUM 7.7 mg/dL (8.5-10.1); CREATININE 0.7 mg/dL (0.6-1.3); PHOSPHORUS 2.6 mg/dL (2.5-4.9); SODIUM SERUM 146.0 mmol/L (136-145); TOTAL PROTEIN, SERUM 5.1 g/dL (6.4-8.2); UREA NITROGEN, BLOOD 27.0 mg/dL (7-18)
[2025-06-08 16:00] VITALS: BP 150/56; TEMP 97.9; O2SAT 97
[2025-06-08 20:00] VITALS: BP 156/78; TEMP 97.9; O2SAT 97
[2025-06-09 08:00] VITALS: BP 169/76; TEMP 98.2; O2SAT 97
[2025-06-09 10:11] LABS: CALCIUM, SERUM 8.1 mg/dL (8.5-10.1); CREATININE 0.7 mg/dL (0.6-1.3); SODIUM SERUM 142.0 mmol/L (136-145); UREA NITROGEN, BLOOD 21.0 mg/dL (7-18)
[2025-06-09 10:42] LABS: PLATELET COUNT (AUTO) 267 K/uL (150-450); RED BLOOD CELL COUNT(AUTO) 3.42 MIL/uL (4.0-5.2); RED CELL DISTRIBUTION WIDTH 14.5 % (11.5-15.0); WHITE BLOOD COUNT (AUTO) 26.2 K/uL (4.3-11.0)
[2025-06-09 14:53] LABS: LYMPHOCYTES % (MANUAL) 7 % (16-48); MONOCYTES % (MANUAL) 6 % (0-11.0); NEUTROPHILS % (MANUAL) 87 (42-76); PLATELET ESTIMATE ADEQUATE
[2025-06-09 20:33] VITALS: BP 144/77; TEMP 98.1; O2SAT 97
[2025-06-09 22:20] LABS: RHEUMATOID FACTOR SCREEN NEGATIVE (NEGATIVE)
[2025-06-09 22:30] LABS: IRON, SERUM 45.0 ug/dl (50-175)
[2025-06-10 07:00] VITALS: BP 164/68; TEMP 97.2; O2SAT 100
[2025-06-10 07:13] LABS: PLATELET COUNT (AUTO) 373 K/uL (150-450); RED BLOOD CELL COUNT(AUTO) 2.98 MIL/uL (4.0-5.2); RED CELL DISTRIBUTION WIDTH 14.1 % (11.5-15.0); WHITE BLOOD COUNT (AUTO) 24.7 K/uL (4.3-11.0)
[2025-06-10 07:45] LABS: CALCIUM, SERUM 8.3 mg/dL (8.5-10.1); CREATININE 0.7 mg/dL (0.6-1.3); PHOSPHORUS 3.8 mg/dL (2.5-4.9); SODIUM SERUM 145.0 mmol/L (136-145); UREA NITROGEN, BLOOD 18.0 mg/dL (7-18)
[2025-06-10] MEDS: MAGNESIUM OXIDE 400 MG TABLET PO ONE (12:25)
[2025-06-10 14:19] LABS: LYMPHOCYTES % (MANUAL) 7 % (16-48); MONOCYTES % (MANUAL) 5 % (0-11.0)
[2025-06-10 14:20] LABS: NEUTROPHILS % (MANUAL) 88 (42-76); PLATELET ESTIMATE ADEQUATE
[2025-06-10 16:00] VITALS: BP 163/59; TEMP 99; O2SAT 97
[2025-06-10] MEDS: AMLODIPINE BESYLATE 10 MG TABLET PO SCH (17:56)
[2025-06-10 18:47] LABS: OCCULT BLOOD STOOL NEGATIVE (NEGATIVE)
[2025-06-10 20:00] VITALS: BP 150/79; TEMP 99.5; O2SAT 97
[2025-06-11 04:07] LABS: FOLIC ACID 10.6 ng/mL (>3.0); HEPATITIS B SURFACE AB (QUAL) Non Reactive (.)
[2025-06-11 05:08] LABS: CANCER AG, 15-3 22.4 U/mL (0.0-25.0); CARCINOEMBRYONIC ANTIGEN (CEA) 2.0 ng/mL (0.0-4.7)
[2025-06-11 07:00] VITALS: BP 138/58; TEMP 98.1; O2SAT 100
[2025-06-11 07:07] LABS: IMMUNOGLOBULIN A, SERUM 556 mg/dL (64-422); IMMUNOGLOBULIN M, SERUM 84 mg/dL (26-217)
[2025-06-11 07:40] LABS: CALCIUM, SERUM 8.1 mg/dL (8.5-10.1); CREATININE 0.7 mg/dL (0.6-1.3); SODIUM SERUM 144.0 mmol/L (136-145); UREA NITROGEN, BLOOD 17.0 mg/dL (7-18)
[2025-06-11 08:07] LABS: FREE KAPPA LT CHAINS SERUM 90.6 mg/L (3.3-19.4); FREE LAMBDA LT CHAIN SERUM 82.9 mg/L (5.7-26.3); KAPPA/LAMBDA RATIO SERUM 1.09 (0.26-1.65)
[2025-06-11 08:17] LABS: PLATELET COUNT (AUTO) 499 K/uL (150-450); RED BLOOD CELL COUNT(AUTO) 3.05 MIL/uL (4.0-5.2); RED CELL DISTRIBUTION WIDTH 14.4 % (11.5-15.0); WHITE BLOOD COUNT (AUTO) 26.1 K/uL (4.3-11.0)
[2025-06-11] MEDS: MAGNESIUM OXIDE 400 MG TABLET PO ONE (11:21)
[2025-06-11 12:17] LABS: LYMPHOCYTES % (MANUAL) 9 % (16-48); MONOCYTES % (MANUAL) 5 % (0-11.0); NEUTROPHILS % (MANUAL) 86 (42-76); PLATELET ESTIMATE INCREASED
[2025-06-11 13:08] LABS: *ANA ANTI-CENTROMERE B AB <0.2 AI (0.0-0.9); *ANA ANTI-DNA(DS) AB, QN <1 IU/mL (0-9); *ANA ANTI-JO-1 <0.2 AI (0.0-0.9); *ANA ANTICHROMATIN ANTIBODY <0.2 AI (0.0-0.9); *ANA RNP ANTIBODIES 0.2 AI (0.0-0.9); *ANA SJOGREN'S ANTI-SS-A <0.2 AI (0.0-0.9); *ANA SJOGREN'S ANTI-SS-B <0.2 AI (0.0-0.9); *ANAANTI-SCLERODERMA-70 AB <0.2 AI (0.0-0.9); *ANASMITH AB <0.2 AI (0.0-0.9)
[2025-06-11 16:00] VITALS: BP 151/68; TEMP 97.7; O2SAT 96
[2025-06-11] MEDS: OLANZAPINE 2.5 MG TABLET PO SCH (16:27)
[2025-06-11 21:08] VITALS: BP 155/63; TEMP 98.2; O2SAT 96
[2025-06-11 22:34] VITALS: BP 135/74; TEMP 98; O2SAT 98
[2025-06-12 07:18] LABS: PLATELET COUNT (AUTO) 619 K/uL (150-450); RED BLOOD CELL COUNT(AUTO) 2.95 MIL/uL (4.0-5.2); RED CELL DISTRIBUTION WIDTH 13.5 % (11.5-15.0); WHITE BLOOD COUNT (AUTO) 26.2 K/uL (4.3-11.0)
[2025-06-12 07:47] LABS: CALCIUM, SERUM 8.0 mg/dL (8.5-10.1); CREATININE 0.7 mg/dL (0.6-1.3); PHOSPHORUS 3.2 mg/dL (2.5-4.9); SODIUM SERUM 145.0 mmol/L (136-145); UREA NITROGEN, BLOOD 17.0 mg/dL (7-18)
[2025-06-12 08:00] VITALS: BP 146/55; TEMP 97.9; O2SAT 98
[2025-06-12 08:19] LABS: LYMPHOCYTES % (MANUAL) 5 % (16-48); NEUTROPHILS % (MANUAL) 88 (42-76)
[2025-06-12 08:20] LABS: METAMYELOCYTES % 1 % (0-0); MYELOCYTES % 2 % (0-0); PLATELET ESTIMATE INCREASED
[2025-06-12 08:22] LABS: MONOCYTES % (MANUAL) 4 % (0-11.0)
[2025-06-12] MEDS: PANTOPRAZOLE 40 MG/PACK PACK PO SCH (08:41)
[2025-06-12] MEDS: MAGNESIUM OXIDE 400 MG TABLET PO ONE (12:35)
[2025-06-12] MEDS: POTASSIUM CHLORIDE 20 MEQ POWDER PACKET PO ONE (12:35)
[2025-06-12 16:00] VITALS: BP 123/55; TEMP 98.1; O2SAT 99
[2025-06-12] MEDS ORDERED: IOHEXOL-300 100 ML VIAL IV ONE (16:00)
[2025-06-12] MEDS ORDERED: IV NS 0.9% 250 ML IV ONE (16:01)
[2025-06-12] MEDS: GLUCERNA SHAKE 237 ML CAN PO SCH (17:14)
[2025-06-12 20:00] VITALS: BP 144/58; TEMP 97.9; O2SAT 95
[2025-06-12] MEDS: POTASSIUM CL. PREMIX PERIPHER. 50 ML IV SCH (22:29)
[2025-06-13 08:00] VITALS: BP 143/54; TEMP 98.3; O2SAT 100
[2025-06-13 09:16] LABS: PLATELET COUNT (AUTO) 655 K/uL (150-450); RED BLOOD CELL COUNT(AUTO) 3.22 MIL/uL (4.0-5.2); RED CELL DISTRIBUTION WIDTH 14.0 % (11.5-15.0); WHITE BLOOD COUNT (AUTO) 19.6 K/uL (4.3-11.0)
[2025-06-13 10:02] LABS: CALCIUM, SERUM 8.4 mg/dL (8.5-10.1); CREATININE 0.7 mg/dL (0.6-1.3); PHOSPHORUS 3.3 mg/dL (2.5-4.9); SODIUM SERUM 148.0 mmol/L (136-145); UREA NITROGEN, BLOOD 17.0 mg/dL (7-18)
[2025-06-13 11:32] LABS: LYMPHOCYTES % (MANUAL) 3 % (16-48); MONOCYTES % (MANUAL) 1 % (0-11.0); MYELOCYTES % 3 % (0-0); NEUTROPHILS % (MANUAL) 93 (42-76); PLATELET ESTIMATE INCREASED
[2025-06-13 11:48] LABS: TOTAL PROTEIN, SERUM 6.1 g/dL (6.4-8.2)
[2025-06-13 12:08] LABS: ASPARTATE AMINOTRANSFERASE 8.0 U/L (15-37)
[2025-06-13] MEDS: CEFTRIAXONE 2 G in IV D5W 100 ML IV SCH (16:36)
[2025-06-13 20:00] VITALS: BP 124/50; TEMP 98.1; O2SAT 96
[2025-06-13] MEDS ORDERED: CEFTRIAXONE 2 G in IV D5W 50 ML IV SCH (21:00)
[2025-06-14 07:30] VITALS: BP 137/64; TEMP 98.2; O2SAT 98
[2025-06-14 07:31] LABS: PLATELET COUNT (AUTO) 629 K/uL (150-450); RED BLOOD CELL COUNT(AUTO) 2.83 MIL/uL (4.0-5.2); RED CELL DISTRIBUTION WIDTH 14.0 % (11.5-15.0); WHITE BLOOD COUNT (AUTO) 16.7 K/uL (4.3-11.0)
[2025-06-14 08:08] LABS: CALCIUM, SERUM 8.4 mg/dL (8.5-10.1); CREATININE 0.7 mg/dL (0.6-1.3); PHOSPHORUS 3.9 mg/dL (2.5-4.9); SODIUM SERUM 147.0 mmol/L (136-145); UREA NITROGEN, BLOOD 18.0 mg/dL (7-18)
[2025-06-14] MEDS: ASPIRIN 81 MG TAB.CHEW PO SCH (08:49)
[2025-06-14 09:22] LABS: LYMPHOCYTES % (MANUAL) 12 % (16-48); MONOCYTES % (MANUAL) 4 % (0-11.0); NEUTROPHILS % (MANUAL) 84 (42-76); PLATELET ESTIMATE INCREASED
[2025-06-14 16:00] VITALS: BP 151/55; TEMP 98.8; O2SAT 98
[2025-06-14 20:00] VITALS: BP 155/60; TEMP 98.1; O2SAT 99
[2025-06-14] MEDS: QUETIAPINE FUMARATE 25 MG TABLET PO SCH (21:44)
[2025-06-15 06:56] LABS: PLATELET COUNT (AUTO) 610 K/uL (150-450); RED BLOOD CELL COUNT(AUTO) 2.62 MIL/uL (4.0-5.2); RED CELL DISTRIBUTION WIDTH 13.8 % (11.5-15.0); WHITE BLOOD COUNT (AUTO) 13.9 K/uL (4.3-11.0)
[2025-06-15 07:10] LABS: CALCIUM, SERUM 8.4 mg/dL (8.5-10.1); CREATININE 0.7 mg/dL (0.6-1.3); PHOSPHORUS 3.3 mg/dL (2.5-4.9); SODIUM SERUM 148.0 mmol/L (136-145); UREA NITROGEN, BLOOD 17.0 mg/dL (7-18)
[2025-06-15 07:30] VITALS: BP 133/45; TEMP 98.2; O2SAT 99
[2025-06-15 08:00] VITALS: BP 133/45; TEMP 98.2; O2SAT 99
[2025-06-15 09:16] LABS: LYMPHOCYTES % (MANUAL) 11 % (16-48); NEUTROPHILS % (MANUAL) 84 (42-76)
[2025-06-15 09:17] LABS: MONOCYTES % (MANUAL) 5 % (0-11.0); PLATELET ESTIMATE INCREASED
[2025-06-15 09:42] VITALS: BP 155/60
[2025-06-15] MEDS: POTASSIUM CHLORIDE 20 MEQ POWDER PACKET PO ONE (12:02)
[2025-06-15] MEDS: PIPERCILLIN/TAZOBACTAM 2.25GM/D5W 50MLPB IV ONE (14:55)
[2025-06-15] MEDS: VANCOMYCIN 1 GM /D5W 250 ML PB IV ONE (14:55)
[2025-06-15 16:07] LABS: *SPE A/G RATIO 0.5 (0.7-1.7); *SPE ALBUMIN 1.9 g/dL (2.9-4.4); *SPE ALPHA-1-GLOBULIN 0.4 g/dL (0.0-0.4); *SPE ALPHA-2-GLOBULIN 1.0 g/dL (0.4-1.0); *SPE BETA GLOBULIN 1.1 g/dL (0.7-1.3); *SPE GLOBULIN, TOTAL 3.8 g/dL (2.2-3.9); *SPE M-SPIKE 0.4 g/dL (Not Observed); *SPE PROTEIN TOTAL 5.7 g/dL (6.0-8.5); *SPEGAMMA GLOBULIN 1.3 g/dL (0.4-1.8)
[2025-06-15] MEDS ORDERED: CEFT2PIG IV (16:47)
[2025-06-15] MEDS ORDERED: NUT.237L45 PO (16:47)
[2025-06-15] MEDS ORDERED: MEGE40TA7 PO (16:47)
[2025-06-16] MEDS ORDERED: VITAMINS A AND D 56.7 GM TUBE TP SCH (09:00)
== END 2025-06-15 18:07 | DRG 871 ==
LOC: ER 17:44 → TELE 20:22 → MED 21:32 → TELE 06-02 05:04 → MED 06-05 18:17
PROVIDERS: ADMIT Nurse Practitioner Family; ATTEND Nurse Practitioner Acute Care
DX: A41.9 Sepsis, unspecified organism (principal); E43 Unspecified severe protein-calorie malnutrition; L89.153 Pressure ulcer of sacral region, stage 3; L89.323 Pressure ulcer of left buttock, stage 3; L89.313 Pressure ulcer of right buttock, stage 3; G93.41 Metabolic encephalopathy; N13.6 Pyonephrosis; D68.59 Other primary thrombophilia; E87.0 Hyperosmolality and hypernatremia; E87.20 Acidosis, unspecified; M48.54XA Collapsed vertebra, not elsewhere classified, thoracic region, initial encounter for fracture; N17.9 Acute kidney failure, unspecified; D75.839 Thrombocytosis, unspecified; Z79.84 Long term (current) use of oral hypoglycemic drugs; F39 Unspecified mood [affective] disorder; E78.5 Hyperlipidemia, unspecified; E83.42 Hypomagnesemia; R65.20 Severe sepsis without septic shock; D64.9 Anemia, unspecified; D72.821 Monocytosis (symptomatic); E87.6 Hypokalemia; E88.09 Other disorders of plasma-protein metabolism, not elsewhere classified; G20.A1 Parkinson's disease without dyskinesia, without mention of fluctuations; I25.10 Atherosclerotic heart disease of native coronary artery without angina pectoris; I10 Essential (primary) hypertension; F25.9 Schizoaffective disorder, unspecified; E11.40 Type 2 diabetes mellitus with diabetic neuropathy, unspecified; L85.3 Xerosis cutis; M89.8X9 Other specified disorders of bone, unspecified site; Z87.442 Personal history of urinary calculi; K59.00 Constipation, unspecified; R33.8 Other retention of urine; N32.0 Bladder-neck obstruction; Z68.31 Body mass index [BMI] 31.0-31.9, adult; L89.626 Pressure-induced deep tissue damage of left heel; M51.369 Other intervertebral disc degeneration, lumbar region without mention of lumbar back pain or lower extremity pain; B96.1 Klebsiella pneumoniae [K. pneumoniae] as the cause of diseases classified elsewhere; L98.8 Other specified disorders of the skin and subcutaneous tissue; D47.2 Monoclonal gammopathy
CPT/HCPCS: 36415; 71045-TC; 71260-TC; 76770-TC; 80048-TC; 80053-TC; 80076-TC; 81001; 82232; 82272-TC; 82378; 82607-TC; 82728-TC; 82784; 82962-TC; 83540-TC; 83605-TC; 83615-TC; 83690-TC; 83735-TC; 84100-TC; 84155; 84165; 84439-TC; 84443-TC; 85025-TC; 85027-TC; 86140-TC; 86225; 86235; 86300; 86334; 86431-TC; 86706; 86803; 87040-TC; 87086-TC; 87186-TC; 87340; 92526; 92611; A4223; G0378; J0696; J1644; J1815; J2405; J2543; J3373; J3374; J3475; J3480; J3490; J7030; J7040; J7042; J7050; J7060; J7070; J7120; Q9967

== ENCOUNTER 2025-08-28 13:41 | Inpatient (IN) | payer MEDICARE, OTHER ==
[~2025-08-28] VITALS: Ht 165.1 cm; Wt 63.5 kg
[~2025-08-28 13:41] MED LIST changes: +CEFT2PIG IV; -CLOT15CR35 TP; -IBUP-1955 PO; +MEGE40TA7 PO; +NUT.237L45 PO; +TRAM50TA2 PO
[2025-08-28] MEDS ORDERED: ONDANSETRON HCL/PF 4 MG/2 ML VIAL ONE (14:05)
[2025-08-28] MEDS: IV NS 0.9% 1,000 ML BAG IV ONE (14:35)
[2025-08-28] MEDS: PANTOPRAZOLE 80 MG in IV NS 0.9% 100 ML IV ONE (14:35)
[2025-08-28] MEDS: ONDANSETRON HCL/PF 4 MG/2 ML VIAL IVP ONE (14:35)
[2025-08-28] MEDS: PANTOPRAZOLE 80 MG in IV NS 0.9% 500 ML IV ONE (15:00)
[2025-08-28 15:10] LABS: CALCIUM, SERUM 9.7 mg/dL (8.5-10.1); CREATININE 1.0 mg/dL (0.6-1.3); PLATELET COUNT (AUTO) 710 K/uL (150-450); RED BLOOD CELL COUNT(AUTO) 3.60 MIL/uL (4.0-5.2); RED CELL DISTRIBUTION WIDTH 15.5 % (11.5-15.0); SODIUM SERUM 138 mmol/L (136-145); UREA NITROGEN, BLOOD 59 mg/dL (7-18); WHITE BLOOD COUNT (AUTO) 12.6 K/uL (4.3-11.0)
[2025-08-28 15:14] LABS: INR 1.08 (0.91-1.10)
[2025-08-28 15:16] LABS: ASPARTATE AMINOTRANSFERASE 6 U/L (15-37); TOTAL PROTEIN, SERUM 8.0 g/dL (6.4-8.2)
[2025-08-28] MEDS ORDERED: IOHEXOL-300 100 ML VIAL IV ONE (15:31)
[2025-08-28] MEDS ORDERED: IV NS 0.9% 250 ML IV ONE (15:33)
[2025-08-28] MEDS ORDERED: ACETAMINOPHEN 325 MG TABLET PO PRN (16:30)
[2025-08-28] MEDS ORDERED: MAG HYDROX/AL HYDROX/SIMETH 30 ML UDC PO PRN ×2 (16:30→18:45)
[2025-08-28] MEDS ORDERED: IV NS 0.9% 1,000 ML IV PRN (16:30)
[2025-08-28] MEDS ORDERED: Z GUARD REMEDY 4 OZ OINT TP PRN ×2 (16:30→18:45)
[2025-08-28] MEDS ORDERED: MAGNESIUM HYDROXIDE 30 ML UDC PO PRN ×2 (16:30→18:45)
[2025-08-28] MEDS ORDERED: ONDANSETRON HCL/PF 4 MG/2 ML VIAL IVP PRN ×2 (16:30→18:45)
[2025-08-28] MEDS ORDERED: FERR-68 PO (16:48)
[2025-08-28] MEDS ORDERED: ASCO-352 PO (16:48)
[2025-08-28] MEDS ORDERED: MEGE40TA5 PO (16:48)
[2025-08-28] MEDS ORDERED: AMIN30LI2 PO (16:48)
[2025-08-28] MEDS ORDERED: POLY17PO4 PO (16:48)
[2025-08-28] MEDS ORDERED: MULT-213 PO (16:48)
[2025-08-28] MEDS ORDERED: POVI3780 TP (16:48)
[2025-08-28] MEDS ORDERED: PANTOPRAZOLE 40 MG VIAL IV SCH (21:00)
[2025-08-28] MEDS: PANTOPRAZOLE 40 MG VIAL IV SCH (21:22)
[2025-08-28] MEDS: IV NS 0.9% 1,000 ML IV PRN (22:40)
[2025-08-29] VITALS (8 sets, daily range): BP systolic 94–146; BP diastolic 53–88; TEMP 97.7–98.5; O2SAT 95–100
[2025-08-29] MEDS: SUCRALFATE 1 G/10 ML UDC GT SCH (18:15)
[2025-08-30 04:00] VITALS: BP 131/61; TEMP 97.9; O2SAT 96
[2025-08-30 08:00] VITALS: BP 143/63; TEMP 97.9; O2SAT 99
[2025-08-30 10:28] LABS: PLATELET COUNT (AUTO) 586 K/uL (150-450); RED BLOOD CELL COUNT(AUTO) 3.16 MIL/uL (4.0-5.2); RED CELL DISTRIBUTION WIDTH 15.0 % (11.5-15.0); WHITE BLOOD COUNT (AUTO) 9.2 K/uL (4.3-11.0)
[2025-08-30 10:38] LABS: CALCIUM, SERUM 9.0 mg/dL (8.5-10.1); CREATININE 0.7 mg/dL (0.6-1.3); SODIUM SERUM 144.0 mmol/L (136-145); UREA NITROGEN, BLOOD 27.0 mg/dL (7-18)
[2025-08-30 16:00] VITALS: BP 116/54; TEMP 100; O2SAT 95
[2025-08-30] MEDS: ACETAMINOPHEN 325 MG TABLET PO PRN (16:20)
[2025-08-30 20:00] VITALS: BP 116/54; TEMP 99.8; O2SAT 95
[2025-08-30] MEDS: PANTOPRAZOLE 40 MG/PACK PACK PO SCH (20:53)
[2025-08-31 04:00] VITALS: BP 108/50; TEMP 98.8; O2SAT 100
[2025-08-31 06:38] LABS: PLATELET COUNT (AUTO) 545 K/uL (150-450); RED BLOOD CELL COUNT(AUTO) 3.24 MIL/uL (4.0-5.2); RED CELL DISTRIBUTION WIDTH 14.9 % (11.5-15.0); WHITE BLOOD COUNT (AUTO) 10.0 K/uL (4.3-11.0)
[2025-08-31 06:40] LABS: CALCIUM, SERUM 8.1 mg/dL (8.5-10.1); CREATININE 0.8 mg/dL (0.6-1.3); SODIUM SERUM 147.0 mmol/L (136-145); UREA NITROGEN, BLOOD 23.0 mg/dL (7-18)
[2025-08-31 08:00] VITALS: BP 146/90; TEMP 98.2; O2SAT 99
[2025-08-31 08:43] VITALS: BP 146/90; TEMP 98.2; O2SAT 99
[2025-08-31] MEDS ORDERED: PANT40SU2 PO (09:08)
[2025-08-31] MEDS: Z GUARD REMEDY 4 OZ OINT TP SCH (09:17)
== END 2025-08-31 15:28 | DRG 370 ==
LOC: ER 13:55 → MEDSG1 18:44
PROVIDERS: ADMIT Internal Medicine; ATTEND Internal Medicine
PROC: 0DB68ZX Excision of Stomach, Via Natural or Artificial Opening Endoscopic, Diagnostic (ICD-10-PCS; principal; 2025-08-29 16:35)
DX: K20.91 Esophagitis, unspecified with bleeding (principal); K29.70 Gastritis, unspecified, without bleeding; G20.A1 Parkinson's disease without dyskinesia, without mention of fluctuations; F02.A0 Dementia in other diseases classified elsewhere, mild, without behavioral disturbance, psychotic disturbance, mood disturbance, and anxiety; E11.40 Type 2 diabetes mellitus with diabetic neuropathy, unspecified; E78.5 Hyperlipidemia, unspecified; F25.9 Schizoaffective disorder, unspecified; I10 Essential (primary) hypertension; L85.3 Xerosis cutis; Z79.84 Long term (current) use of oral hypoglycemic drugs; Z87.442 Personal history of urinary calculi; F29 Unspecified psychosis not due to a substance or known physiological condition; L89.616 Pressure-induced deep tissue damage of right heel; R60.9 Edema, unspecified; L89.620 Pressure ulcer of left heel, unstageable; D50.0 Iron deficiency anemia secondary to blood loss (chronic)
CPT/HCPCS: 36415; 71045-TC; 80048-TC; 80076-TC; 83690-TC; 84484-TC; 85025-TC; 85730-TC; 86850-TC; 87081-TC; A4223; A6403; G0378; J2405; J2470; J2704; J3490; J7030; J7040; J7050; Q9967